=== PATIENT | female | born 2000 | race Caucasian/White ===

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

== ENCOUNTER 2019-03-30 18:14 | Outpatient (CLI) | payer SELFPAY ==
[2019-03-30 18:22] VITALS: BMI 21.7
== END 2019-03-30 18:28 | disposition home or self-care (01) ==
PROVIDERS: PCP Emergency Medicine; Visit Provider Nurse Practitioner Family
DX: Z11.1 Encounter for screening for respiratory tuberculosis (principal)
CPT/HCPCS: 86580

== ENCOUNTER → 2019-09-06 16:31 | Outpatient (CLI) | payer BC, SELFPAY ==
[2019-09-10 08:46] LABS: Neisseria gonorrhoeae, NAA Negative (Negative)
== END ==
PROVIDERS: Visit Provider Nurse Practitioner Obstetrics & Gynecology
DX: Z72.51 High risk heterosexual behavior (principal)
CPT/HCPCS: 87491; 87591

== ENCOUNTER → 2019-09-09 15:42 | Outpatient (CLI) | payer BC, SELFPAY ==
[2019-09-11 17:46] LABS: H. pylori Breath Test Negative (Negative)
== END ==
PROVIDERS: Visit Provider Nurse Practitioner Family
DX: R11.2 Nausea with vomiting, unspecified (principal)
CPT/HCPCS: 36415; 83013

== ENCOUNTER 2020-01-07 13:56 | Emergency (ER) | payer BC, SELFPAY ==
[2020-01-07 14:16] VITALS: BP 121/80; PULSE 101; RESP 19; TEMP 36.8; O2SAT 98; BMI 25.2
--- NOTE | 2020-01-07 14:16 | HMH.EDUTC ---
[facility] [place] Disposition Clinical Impression: COVID-19 Disposition: Home, Self-Care Condition on Discharge: Good Instructions: Preventing the Spread of Coronavirus Discharge Instructions Prescriptions: predniSONE [Prednisone 20mg Tab] 20 mg PO BID 5 Days #10 tab Transmission Status: Pending to [facility] Azithromycin [Z-Drew 250mg Tab] 250 mg PO DIRECTED #6 tab Transmission Status: Pending to [facility] Referrals: Lenin Mar MD [Primary Care Provider] - Time of Disposition: 14:21 Medical Decision Making - Leonardo Inquiry Pt receiving controlled substance: No Orders (Tests/Meds): ORDERS Category Date Time Status Covid-19 Nasal PCR ([facility]) Routine Lab 01/07/20 14:07 Ordered [facility] [place] HPI - General Stated complaint: retest covid Time Seen by Provider: 01/07/20 14:16 - History of Present Illness Provider Complaint: Patient diagnosed with COVID19 on 12/26. She is still having headaches, shortness of breath, diarrhea and has lost her sense of taste. She also has a history of asthma and is using her inhaler frequently. Onset (ago): day(s) (11) Location: head, chest Relieving factors: none Exacerbating factors: none Treatments prior to arrival: none - Related Data Home Medications Medication Instructions Recorded Confirmed omeprazole 20 mg tablet,delayed 20 mg PO tab 09/21/19 09/21/19 release Previous Rx's Medication Instructions Recorded albuterol sulfate 90 mcg/actuation 2 puff INHALATION Q6H #6.7 g 05/14/19 aerosol inhaler medroxyprogesterone 150 mg/mL 150 mg IM [id number] #1 ml 06/15/19 intramuscular suspension famotidine 40 mg tablet 40 mg PO DAILY #30 tab 09/08/19 nizatidine 150 mg capsule 150 mg PO QHS #30 cap 09/10/19 albuterol sulfate 2.5 mg INHALATION TID #180 ml 12/30/19 Azithromycin [Z-Drew 250mg Tab] 250 mg PO DIRECTED #6 tab 01/07/20 predniSONE [Prednisone 20mg 20 mg PO BID 5 Days #10 tab 01/07/20 Tab] Allergies Allergy/AdvReac Type Severity Reaction Status Date / Time amoxicillin [AMOXICILLIN] Allergy Mild Verified 09/21/19 14:01 penicillin G [PENICILLIN G] Allergy Mild Verified 09/21/19 14:01 EGGS Allergy Uncoded 09/21/19 14:01 [facility] History - Hepatitis A Screen Attestation statement:: This patient has been screened for Hepatitis A risk factors. I have reviewed the patient's past medical history: Yes Medical History: Reports:: Asthma Denies:: Diabetes Mellitus Type 1, Diabetes Mellitus Type 2 Other Surgeries: Yes: No Previous Surgery Amputation: No Fractures: No - Social History Smoking Status: Never smoker Tobacco Type: e-cigarettes # Packs/Day (cigarettes): 1 Alcohol Intake: never Substance Use Type: denies use Occupational Status: other Housing: house Household Members: family Family Hx:: Coronary Artery Disease, Heart Attack Comment: Maternal Grandparents-SC ROS Obtained: Yes All systems reviewed & no additional complaints - Constitutional Constitutional: Reports headache(s) - ENT Ears, Nose, Mouth, and Throat: Reports other (loss of taste) - Respiratory Respiratory: Yes dyspnea - Gastrointestinal Gastrointestingal: Reports: diarrhea Physical Exam - General General appearance: alert, in no apparent distress - Head Head exam: atraumatic, normocephalic, normal inspection - Eye Eye exam: Present: normal appearance, PERRL, EOMI - ENT ENT exam: Present: normal exam, normal oropharynx, mucous membranes moist, TM's normal bilaterally, normal external ear exam - Neck Neck exam: Present: normal inspection, full ROM, trachea midline. Absent: meningismus, lymphadenopathy - Chest Chest inspection: Present: normal inspection, symmetric chest wall rise. Absent: tenderness - Respiratory Respiratory exam: Present: normal lung sounds bilaterally. Absent: respiratory distress - Cardiovascular Cardiovascular exam: Present: regular rate, normal rhythm. Absent: JVD - Abdominal Exam Abdomi
[2020-01-07 14:22] VITALS: BP 121/80; PULSE 101; RESP 19; TEMP 36.8; O2SAT 98
== END 2020-01-07 14:24 | disposition home or self-care (01) ==
PROVIDERS: Emergency Provider Physician Assistant; PCP Emergency Medicine
DX: U07.1 COVID-19 (principal); J45.909 Unspecified asthma, uncomplicated; F17.290 Nicotine dependence, other tobacco product, uncomplicated
CPT/HCPCS: 99201; U0003

== ENCOUNTER → 2020-07-11 14:27 | Outpatient (CLI) | payer BC, SELFPAY ==
--- NOTE | 2020-07-11 14:29 | XR_ITS ---
PROCEDURE: XR CHEST 2V CLINICAL HISTORY: Dyspnea, COVID 10/20, asthma COMPARISON: CR CXR CHEST(2 VIEWS-NOT PORTABLE) from 04/26/2015 CR CXR2V XR chest 2V from 04/03/2017 FINDINGS: The cardiomediastinal silhouette and pulmonary vascularity are within normal limits. The lungs are clear without infiltrates, suspicious nodules, or pleural effusions. No acute bony abnormalities. IMPRESSION: No acute findings. Dictated by: Yefri Gonzalez MD 07/11/2020 14:43 Yefri Gonzalez MD in [place] 07/11/2020 14:43
[2020-07-11 15:28] LABS: Basophils # 0.1 K/mm3 (0-0.2); Basophils % 0.9 % (0.1-2.0); Eosinophils # 0.5 K/mm3 (0.0-0.4); Eosinophils % 5.6 % (0.1-12.0); Hematocrit 41.8 % (37.0-47.0); Hemoglobin 14.1 g/dL (12.2-16.2); Lymphocytes # 2.4 K/mm3 (0.7-4.5); Lymphocytes % 28.3 % (10-50); Mean Corpuscular HGB Conc 33.6 g/dL (31.8-35.4); Mean Corpuscular Hemoglobin 28.1 pg (27.0-31.2); Mean Corpuscular Volume 83.4 fl (81-99); Mean Platelet Volume 7.3 fl (7.4-10.4); Monocytes # 0.6 K/mm3 (0.1-1.0); Neutrophils # 4.9 K/mm3 (1.8-7.8); Neutrophils % 58.1 % (37.0-80.0); Platelet Count 337 K/mm3 (142-424); Red Blood Count 5.01 M/mm3 (4.20-5.40); Red Cell Distribution Width 12.7 % (11.5-17.5); White Blood Count 8.4 K/mm3 (4.8-10.8)
[2020-07-11 16:27] LABS: Chloride 101 mmol/L (98-107)
[2020-07-11 16:28] LABS: Potassium 4.5 mmoL/L (3.5-5.1); Sodium 137 mmol/L (136-145)
[2020-07-11 16:30] LABS: Amylase 52 U/L (30-110)
[2020-07-11 16:31] LABS: Alanine Aminotransferase 12 U/L (12-78); Albumin Level 5.1 g/dl (3.5-5.0); Alkaline Phosphatase 57 U/L (38-126); Anion Gap 16.5 mEq/L (5-15); Aspartate Amino Transferase 22 U/L (14-36); Bilirubin,Total 0.7 mg/dl (0.2-1.3); Blood Urea Nitrogen 8 mg/dl (7-17); Calcium 10.1 mg/dl (8.4-10.2); Carbon Dioxide 24 mmol/L (22.0-30.0); Estimated Glomerular Filt Rate 126 ml/min (>60); GFR (African American) 153 ML/MIN (>60); Globulin 2.5 g/dL (1.3-3.2); Glucose 92 mg/dl (74-100); HDL Cholesterol 48 mg/dl (40-60); Lipase 57 U/L (23-300); Total Protein,Serum 7.6 g/dl (6.3-8.2)
[2020-07-11 16:32] LABS: Chol/HDL Ratio 4.3 (1-3.5); Cholesterol 205 mg/dl (140-200); Triglycerides 84 mg/dl (30-150); VLDL Cholesterol 17 mg/dL (0-40)
[2020-07-11 16:42] LABS: Direct LDL Cholesterol 120.26 mg/dL (100-129)
[2020-07-11 16:50] LABS: T4 (Thyroxine) 9.6 ug/dl (5.53-11.0)
[2020-07-11 17:02] LABS: Thyroid Stimulating Hormone 0.64 uIU/mL (0.465-4.68)
[2020-07-11 17:08] LABS: HCG,Quantitative < 2 mIU/ml (0-5.42)
[2020-07-13 16:02] LABS: H. pylori Breath Test Negative (Negative)
== END ==
PROVIDERS: PCP Physician Assistant; Visit Provider Physician Assistant
DX: R06.00 Dyspnea, unspecified (principal); R10.13 Epigastric pain; B94.8 Sequelae of other specified infectious and parasitic diseases; J45.909 Unspecified asthma, uncomplicated; Z86.16 Personal history of COVID-19
CPT/HCPCS: 36415; 71046; 80053; 80061; 82150; 83013; 83690; 84436; 84443; 84702; 85025

== ENCOUNTER → 2020-07-21 09:03 | Outpatient (CLI) | payer BC, SELFPAY ==
--- NOTE | 2020-07-21 09:04 | FL_ITS ---
PROCEDURE: FL UPPER GI ESOPHAGUS W/AIR CLINICAL INDICATION: ? hiatal hernia COMPARISON: No exams were available for comparison FINDINGS: Fluoroscopy time: 1 minutes and 15 seconds The esophagus, stomach and duodenum have an unremarkable appearance. No evidence of hiatal hernia. Reflux was not demonstrated during the exam. No mass or ulcerative lesion. IMPRESSION: Unremarkable air-contrast upper GI with esophagus Dictated by: Yefri Gonzalez MD 07/21/2020 12:23 Yefri Gonzalez MD in [facility] 07/21/2020 12:23
== END ==
PROVIDERS: PCP Emergency Medicine; Visit Provider Physician Assistant
DX: K21.00 Gastro-esophageal reflux disease with esophagitis, without bleeding (principal)
CPT/HCPCS: 74221; 74246

== ENCOUNTER 2021-01-29 10:25 | Emergency (ER) | payer BC, SELFPAY ==
[2021-01-29 11:34] VITALS: BP 114/74; PULSE 91; RESP 18; TEMP 36.9; O2SAT 97; BMI 25.4
--- NOTE | 2021-01-29 11:42 | HMH.EDUTC ---
[facility] [place] Clinical Impression: Viral syndrome Disposition: Home, Self-Care Condition on Discharge: Good Instructions: DI for Viral Syndrome Additional Instructions: Drink extra fluids with and between meals. If you have difficulty drinking, try very small amounts of water or suck on ice chips. ? Avoid fruit juices, as these do not replace minerals and can actually increase diarrhea. ? Children and adults can use sports drinks to replenish electrolytes. Younger children and infants should use products formulated for children, like oral rehydration solutions. ? Eat food in small amounts and let your stomach recover. ? Get lots of rest. You may feel tired or weak. ? No greasy or fried foods for the next 24-48 hours BRAT diet Bananas Rice Apples and [place] ? Make sure to drink plenty of liquids ? Return if needed ? Straight to ER if any life threatening symptoms ? Zofran as prescribed ? Follow up with family doctor in the next 48-72 hours if no improvement or any worsening of symptoms *Monitor Temp, Over the counter Motrin or Tylenol as directed/as needed Tylenol every 4 hours and Motrin every 6 hours (as long as your family doctor has told you that you can take it) for fever or pain. and straight to ER if unable to lower temp less than 101.0 after medication given *Warm salt water gargles may help to soothe the throat *Throat Lozenges *Warm fluids like tea with honey may help to soothe the throat *Sleep elevated *Humidifier/Vaporizer Your throat swab was sent for culture. Those results are typically sent to your primary care. Be sure to follow up in 2-3 days with your family doctor/primary care physician if no improvement so they can review those result and treat if necessary. If you don?t have a primary care doctor, I recommend you get one but in the mean time, you will have to return to a walk in clinic Follow up IMMEDIATELY for new or worsening symptoms or no Noticeable improvement over the next 48-72 hours. 911 for difficulty breathing or swallowing You were tested for today for COVID19 your test result should be back in the next 24-48 hours, you may check your results on the [facility] my health portal if you have trouble logging on you may call You was given a handout with instructions for Self Quarantine and Self isolation for while you wait on test results and what to do if they are positive If you are positive the Health Dept will be contacting you also Make sure to take your Vitamins Vit. C Vit D and Zinc if you can take them Straight to ER if your abdominal pain returns Prescriptions: Dicyclomine HCl [Bentyl 10mg capsule] 10 mg PO TID PRN #15 cap PRN Reason: Cramping Transmission Status: Pending to [facility] Ondansetron [Zofran 4mg ODT] 4 mg PO TIDP PRN #9 tab PRN Reason: Nausea Transmission Status: Pending to [facility] Referrals: Lenin Mar MD [Primary Care Provider] - As needed Forms: Work/School Release Time of Disposition: 12:05 Medical Decision Making - Leonardo Inquiry Pt receiving controlled substance: No Leonardo was queried for this patient: No Vital Signs: 01/29/21 11:34 Temperature 98.5 F Temperature Source Oral Pulse Rate [Left] 91 H Respiratory Rate 18 Blood Pressure [Right Arm] 114/74 Blood Pressure Mean [Right Arm] 87 02 Sat by Pulse Oximetry 97 - Lab Data Lab results reviewed: Yes: I reviewed the patient's lab results. Orders (Tests/Meds): ORDERS Category Date Time Status Urine Culture Stat Micro 01/29/21 11:41 Ordered [facility] [place] HPI - General Stated complaint: sore throat, cough, vomiting, congestion Time Seen by Provider: 01/29/21 11:42 Mode of Arrival: Ambulatory Source of Information: Patient Limitations: No Limitations Description of Symptoms (Recalled from Triage Doc. by RN): pt c/o sore throat, n/v, lower back, abd pain, HATCH and nasal drainage. ongoing since 01/26. HEENT Symptoms (Recalled from RN notes): Yes (HATCH, nasal drainage an
[2021-01-29 12:17] LABS: UTC Strep Screen (Rapid) Negative (Negative)
[2021-01-29 12:37] VITALS: BP 114/74; PULSE 91; RESP 18; TEMP 36.9
[2021-01-29 19:13] LABS: UTC Pregnancy Test, Urine Negative (Negative)
== END 2021-01-29 12:39 | disposition home or self-care (01) ==
PROVIDERS: Emergency Provider Nurse Practitioner; PCP Emergency Medicine
DX: B34.9 Viral infection, unspecified (principal); J45.909 Unspecified asthma, uncomplicated; F17.290 Nicotine dependence, other tobacco product, uncomplicated; Z20.822 Contact with and (suspected) exposure to COVID-19
CPT/HCPCS: 81003; 81025; 87880; 99203; C9803; G0463; U0003; U0005

== ENCOUNTER → 2021-06-06 17:00 | Outpatient (CLI) | payer BC, SELFPAY | PROVIDERS: Visit Provider Nurse Practitioner Family | DX: M54.9 Dorsalgia, unspecified (principal) | CPT/HCPCS: 87086 ==

== ENCOUNTER → 2021-06-18 15:23 | Outpatient (CLI) | payer BC, SELFPAY ==
--- NOTE | 2021-06-18 15:30 | US_ITS ---
FINAL REPORT CLINICAL HISTORY: pelvic pain FINDINGS: Transvaginal sonographic images of the pelvis were obtained. The uterus measures 6.6 x 3.5 x 2.8 cm. The endometrium measures 1 mm, which is within normal limits. No uterine mass is identified. The right ovary measures 2.8 cm in length and left ovary measures 2.3 cm in length. Normal blood flow seen to the ovaries. Small follicles are present. There is no evidence of free fluid. IMPRESSION: No acute abnormality identified. Reviewed, Interpreted and Dictated by Flako Pope III, MD Transcribed by Sarah Bear Authenticated by Flako Pope III, MD on 06/18/2021 04:32:25 PM [facility]
== END ==
PROVIDERS: PCP Emergency Medicine; Visit Provider Nurse Practitioner Family
DX: R10.2 Pelvic and perineal pain (principal)
CPT/HCPCS: 76830

== ENCOUNTER → 2021-07-10 17:05 | Outpatient (CLI) | payer BC, SELFPAY ==
[2021-07-10 18:02] LABS: Urine Pregnancy, HCG Qual. Negative (Negative)
== END ==
PROVIDERS: PCP Emergency Medicine; Visit Provider Internal Medicine Gastroenterology
DX: Z01.818 Encounter for other preprocedural examination (principal); Z11.52 Encounter for screening for COVID-19
CPT/HCPCS: 81025; C9803; U0003; U0005

== ENCOUNTER → 2021-11-07 09:02 | Outpatient (CLI) | payer BC, SELFPAY ==
--- NOTE | 2021-11-07 10:01 | XR_ITS ---
FINAL REPORT TECHNIQUE: Bone densitometry calculations of the lumbar spine and left hip were obtained. CLINICAL HISTORY: [facility] USE, dep[place] shot FINDINGS: DEXA BONE DENSITY AXIAL SKELETON Using L1-4, the bone mineral density of the spine is 0.931g/cm2, corresponding to T-score of -1.1. Using the left hip, the bone mineral density of the femoral neck is 0.906 g/cm2, corresponding to a T-score of -0.3. NOTE: T-score: Standard deviation compared with peak bone mass of young adult mean. *Following the recommendations of the International Society of Bone densitometry, classification of hip BMD is based on the lower of two T-scores; total hip or femoral neck. IMPRESSION: Diminished bone mineral density of the lumbar spine consistent with osteopenia. FRAX 10 year fracture risk is needed 0.1% for a hip fracture and 1.6 % for a major osteoporotic fracture based on left hip calculations. Reviewed, Interpreted and Dictated by Garrett Huerta MD Transcribed by Sarah Bear Authenticated and [facility]
== END ==
PROVIDERS: PCP Emergency Medicine; Visit Provider Nurse Practitioner Obstetrics & Gynecology
DX: Z79.3 Long term (current) use of hormonal contraceptives (principal)
CPT/HCPCS: 77080

== ENCOUNTER 2021-12-08 08:24 | Emergency (ER) | payer BC, SELFPAY ==
[2021-12-08 08:41] VITALS: BP 139/82; PULSE 110; RESP 16; TEMP 36.8; O2SAT 97; BMI 28.3
[2021-12-08 08:44] LABS: UTC Strep Screen (Rapid) Negative (Negative)
--- NOTE | 2021-12-08 08:57 | EXP.UTC ---
Discharge Plan Disposition Patient Disposition: Home, Self-Care Condition: Good Prescriptions Prescriptions: New azithromycin [Zithromax] 250 mg tablet 250 mg PO UD DOSE PK Qty: 6 0RF Rx Instructions: Take two (2) tablets today, then one (1) tablet days #2 thru #5 [id number]-nmhjiqowi-GY [Bromfed DM] 2-30-10 mg/5 mL Syrup 5 ml PO Q6H PRN (Reason: Cough) Qty: 240 0RF No Action medroxyprogesterone 150 mg/mL suspension 150 mg IM [id number] Qty: 1 2RF albuterol sulfate [ProAir HFA] 90 mcg/actuation HFA aerosol inhaler 2 puff IH Q4-6H PRN (Reason: shortness of breath or wheezing) 90 Days Qty: 8.5 3RF Rx Instructions: administer with spacer Referrals Follow up/Referrals: Lenin Mar MD [Primary Care Provider] - See instructions Activity Restrictions/Add. Instructions Additional Instructions/Restrictions: Drink plenty of fluids. Take tylenol or ibuprofen for pain or fever. Take the medications as directed. Follow up with your regular doctor. GO TO THE ER FOR ANY WORSENING SYMPTOMS Quarantine until you know the results of your covid-19 test. Notify your school or workplace of your results and follow their instructions regarding return to work/school. Clinical Impressions Clinical Impression: Viral syndrome Instructions Patient Instructions: Strep Throat Discharge ED Provider: Ritesh Herman [facility] HPI General Stated complaint: sore throat Mode of Arrival: Ambulatory Source of Information: Patient Limitations: No Limitations Time Seen by Provider: 12/08/21 08:59 Description of Symptoms (Recalled from Triage Doc. by RN): pt comes in with c/o sore throat, congestion. symptoms began 12/05/21 . HEENT Symptoms (Recalled from RN notes): Yes Resp Symptoms (Recalled from RN notes): Yes Skin Symptoms (Recalled from RN notes): No MS Symptoms (Recalled from RN notes): No Functional Status (Recalled from RN notes): n/a History of Present Illness Provider Complaint: She states that for the past 3 days she has had cough, body aches and low grade fever. Related Data Previous Rx's Medication Instructions Recorded albuterol sulfate 90 mcg/actuation 2 puff inhalation Q4-6H PRN 10/02/21 aerosol inhaler (ProAir HFA) shortness of breath or wheezing 90 days #8.5 grams medroxyprogesterone 150 mg/mL 150 mg IM [id number] control 10/02/21 intramuscular suspension #1 mL azithromycin 250 mg tablet 250 mg PO UD DOSE PK #6 tabs 12/08/21 (Zithromax) trpcrwusfgcjbey-vwsxbzhndyjbgjz-EL 5 ml PO Q6H PRN Cough #240 mL 12/08/21 2 mg-30 mg-10 mg/5 mL oral syrup (Bromfed DM) Allergies Allergy/AdvReac Type Severity Reaction Status Date / Time amoxicillin [AMOXICILLIN] Allergy Mild Verified 12/08/21 08:43 penicillin G [PENICILLIN G] Allergy Mild Verified 12/08/21 08:43 egg Allergy Verified 12/08/21 08:43 Worker's Comp Is this a Worker's Comp case?: No PFSH PFSH Medical History Asthma Social History (Updated 11/07/21 @ 11:51 by Juanpablo Camara MD) Smoking Status: Never smoker alcohol intake: never substance use type: denies use current occupational status: other Travel in the last 8 weeks: None household members: family housing: house ROS Obtained: Yes All systems reviewed & no additional complaints except as documented Constitutional Constitutional: Reports system reviewed and no additional complaints, except as documented, Denies chills and Denies fever(s) Eyes Eyes: Denies eye discharge ENT Ears, Nose, Mouth, and Throat: Denies dysphagia, Denies sore throat and Denies throat swelling Cardiovascular Cardiovascular: Denies chest pain and Denies dyspnea Respiratory Respiratory: Denies chest congestion, Denies cough and Denies dyspnea Gastrointestinal Gastrointestingal: Denies abdominal pain, constipation, diarrhea, dysphagia, nausea or vomiting Musculoskeletal Musculoskeletal: Denies arthr
[2021-12-08 09:42] VITALS: BP 139/82; PULSE 110; RESP 16; TEMP 36.8
[2021-12-08 09:51] LABS: Adenovirus,PCR Not Detected (NotDetected); Bordetella Pertussis Not Detected (NotDetected); Chlamydophila Pneumoniae, PCR Not Detected (NotDetected); Coronavirus 19, PCR Not Detected (NotDetected); Coronavirus 229E Not Detected (NotDetected); Coronavirus NL63 Not Detected (NotDetected); Coronavirus OC43 Not Detected (NotDetected); Coronovirus HKU1,PCR Not Detected (NotDetected); Human Metapneumovirus Not Detected (NotDetected); Influenza A, PCR Not Detected (NotDetected); Influenza AH1, 2009 Not Detected (NotDetected); Influenza AH1, PCR Not Detected (NotDetected); Influenza AH3,PCR Not Detected (NotDetected); Influenza B, PCR Not Detected (NotDetected); Mycoplasma Pneumoniae, PCR Not Detected (NotDetected); Parainfluenza 1, PCR Not Detected (NotDetected); Parainfluenza 2, PCR Not Detected (NotDetected); Parainfluenza 3, PCR Not Detected (NotDetected); Parainfluenza 4, PCR Not Detected (NotDetected); Respiratory Syncytial Virus Not Detected (NotDetected); Rhinovirus/Enterovirus Not Detected (NotDetected)
== END 2021-12-08 09:45 | disposition home or self-care (01) ==
PROVIDERS: Emergency Provider Nurse Practitioner Family; PCP Emergency Medicine
DX: B34.9 Viral infection, unspecified (principal); J02.9 Acute pharyngitis, unspecified; R05.9 Cough, unspecified; R09.81 Nasal congestion; M79.10 Myalgia, unspecified site; R50.9 Fever, unspecified; Z20.822 Contact with and (suspected) exposure to COVID-19
CPT/HCPCS: 87581; 87632; 87798; 87880; 99212; C9803; G0463; U0003; U0005

== ENCOUNTER 2022-01-26 06:29 | Emergency (ER) | payer BC, SELFPAY ==
[2022-01-26 06:30] VITALS: BP 126/84; PULSE 77; RESP 16; TEMP 36.6; O2SAT 97; BMI 28.3
[2022-01-26 06:48] LABS: Microscopic, Urine URINE MICROSCOPIC (MICROSCOPIC)
[2022-01-26 06:50] LABS: Appearance,Urine SL CLOUDY (Clear); Bilirubin,Urine Negative (Negative); Blood, Urine Negative (Negative); Color,Urine YELLOW (Yellow); Glucose,Urine (UA) Negative (Negative); Ketones,Urine Negative (Negative); Leukocyte Esterase,Urine Negative (Negative); Nitrate,Urine Negative (Negative); Protein,Urine Negative (Negative); Urobilinogen,Urine 0.2 EU/dl (0.2)
[2022-01-26 06:51] LABS: Urine Pregnancy, HCG Qual. Negative (Negative)
--- NOTE | 2022-01-26 06:59 | HMH.EDNVD ---
Discharge Plan Disposition Patient Disposition: Home, Self-Care Prescriptions Prescriptions: New ondansetron HCl 4 mg Tablet 4 mg PO Q8H PRN (Reason: Nausea) Qty: 30 0RF No Action medroxyprogesterone 150 mg/mL suspension 150 mg IM [id number] Qty: 1 2RF ondansetron 4 mg tablet,disintegrating 4 mg PO Q8H PRN (Reason: nausea and vomiting) Qty: 30 0RF methylprednisolone 4 mg tablets,dose pack See Rx Instructions PO PER PKG DIR Qty: 21 0RF Rx Instructions: PO PER PKG DIR nzfsbwfkhzpgghb-bdkjqrvia-AC 2-30-10 mg/5 mL syrup 10 ml PO Q4-6H PRN (Reason: cold symptoms) Qty: 200 0RF albuterol sulfate [ProAir HFA] 90 mcg/actuation HFA aerosol inhaler 2 puff IH Q4-6H PRN (Reason: shortness of breath or wheezing) 90 Days Qty: 8.5 3RF Rx Instructions: administer with spacer Referrals Follow up/Referrals: Lenin Mar MD [Primary Care Provider] - See instructions Clinical Impressions Clinical Impression: Gastroenteritis Instructions Patient Instructions: DI for Diarrhea and Traveler's Diarrhea -- Adult, DI for Nausea -- Adult Discharge ED Provider: Lenin Mar Nausea/Vomiting/Diarrhea HPI General Chief complaint: Nausea/Vomiting/Diarrhea Stated complaint: V/D, Chills Time Seen by Provider: 01/26/22 06:59 Mode of Arrival: Ambulatory Source of Information: Patient Limitations: No Limitations Description of Symptoms (Recalled from ER Triage Doc. by RN): pt c/o n/v/d, fever, chills that started several days ago History of Present Illness HPI Narrative: fever and chills with n/v over the last few days complaint: nausea and vomiting Onset (ago): day(s) Associated Abdominal Pain: No Severity: moderate Associated symptoms: denies other symptoms Related Data Previous Rx's Medication Instructions Recorded medroxyprogesterone 150 mg/mL 150 mg IM [id number] control 10/02/21 intramuscular suspension #1 mL albuterol sulfate 90 mcg/actuation 2 puff inhalation Q4-6H PRN 12/13/21 aerosol inhaler (ProAir HFA) shortness of breath or wheezing 90 days #8.5 grams nvefeatzutulfjq-ppptoqyvqofmafc-IC 10 ml PO Q4-6H PRN cold symptoms 01/18/22 2 mg-30 mg-10 mg/5 mL oral syrup #200 mL methylprednisolone 4 mg tablets in See Rx Instructions PO PER PKG DIR 01/18/22 a dose pack #21 tabs ondansetron 4 mg disintegrating 4 mg PO Q8H PRN nausea and 01/18/22 tablet vomiting #30 tabs ondansetron HCl 4 mg tablet 4 mg PO Q8H PRN Nausea #30 tabs 01/26/22 Allergies Allergy/AdvReac Type Severity Reaction Status Date / Time amoxicillin [AMOXICILLIN] Allergy Mild Verified 01/18/22 15:39 penicillin G [PENICILLIN G] Allergy Mild Verified 01/18/22 15:39 egg Allergy Verified 01/18/22 15:39 PFSH PFSH Medical History Asthma Social History Smoking Status: Never smoker alcohol intake: never substance use type: denies use current occupational status: other Travel in the last 8 weeks: None household members: family housing: house ROS Obtained: Yes All systems reviewed & no additional complaints except as documented Physical Exam General General appearance: alert Head Head exam: normocephalic Eye Eye exam: Present PERRL and EOMI ENT ENT exam: Present mucous membranes moist Neck Neck exam: Present trachea midline Respiratory Respiratory exam: Present normal lung sounds bilaterally Cardiovascular Cardiovascular exam: Present regular rate Abdominal Exam Abdominal exam: Present soft Extremities Exam Extremities exam: Present full ROM Neurological Exam Neurological exam: Present alert, oriented X3 and CN II-XII intact Psychiatric Psychiatric exam: Present normal affect Skin Skin exam: Absent rash Medical Decision Making Medical Records Medical records reviewed: Yes I reviewed the patient's medical records. Leonardo Inquiry Pt receiving controlled substance: N
[2022-01-26 07:01] LABS: Basophils # 0.1 K/mm3 (0-0.2); Eosinophils # 0.4 K/mm3 (0.0-0.4); Eosinophils % 3.5 % (0.1-12.0); Hematocrit 47.6 % (37.0-47.0); Hemoglobin 15.6 g/dL (12.2-16.2); Lymphocytes % 20.1 % (10-50); Mean Corpuscular HGB Conc 32.7 g/dL (31.8-35.4); Mean Corpuscular Hemoglobin 27.9 pg (27.0-31.2); Mean Corpuscular Volume 85.2 fl (81-99); Mean Platelet Volume 7.6 fl (7.4-10.4); Monocytes # 0.4 K/mm3 (0.1-1.0); Monocytes % 4.3 % (1.7-9.3); Neutrophils # 7.1 K/mm3 (1.8-7.8); Neutrophils % 71.1 % (37.0-80.0); Platelet Count 437 K/mm3 (142-424); Red Blood Count 5.58 M/mm3 (4.20-5.40); White Blood Count 9.9 K/mm3 (4.8-10.8)
[2022-01-26 07:02] LABS: Coronavirus 19, PCR Not Detected (NotDetected); Influenza A, PCR Not Detected (NotDetected); Influenza B, PCR Not Detected (NotDetected)
[2022-01-26 07:11] LABS: Alanine Aminotransferase 22 U/L (12-78); Albumin Level 5.1 g/dl (3.5-5.0); Albumin/Globulin Ratio 1.6 (1.1-1.8); Alkaline Phosphatase 96 U/L (38-126); Amylase 86 U/L (30-110); Aspartate Amino Transferase 27 U/L (14-36); Bilirubin,Total 0.5 mg/dl (0.2-1.3); Blood Urea Nitrogen 11 mg/dl (7-17); Calcium 10.3 mg/dl (8.4-10.2); Carbon Dioxide 25 mmol/L (22.0-30.0); Chloride 102 mmol/L (98-107); Creatinine Clearance Estimated 157 mL/min (50-200); Estimated Glomerular Filt Rate 124 ml/min (>60); GFR (African American) 150 ML/MIN (>60); Globulin 3.2 g/dL (1.3-3.2); Glucose 120 mg/dl (74-100); Lipase 66 U/L (23-300); Sodium 141 mmol/L (136-145); Total Protein,Serum 8.3 g/dl (6.3-8.2)
[2022-01-26 07:11] LABS: Bacteria,Urine Trace /lpf
[2022-01-26 07:30] VITALS: BP 127/70; PULSE 74; RESP 16; O2SAT 100
[2022-01-26 07:58] VITALS: BP 121/74; PULSE 83; RESP 18; O2SAT 99
[2022-01-26 08:00] VITALS: BP 121/74; PULSE 69; RESP 16; TEMP 36.7; O2SAT 99
== END 2022-01-26 08:00 | disposition home or self-care (01) ==
PROVIDERS: Emergency Provider Emergency Medicine; PCP Emergency Medicine
DX: K52.9 Noninfective gastroenteritis and colitis, unspecified (principal); Z79.899 Other long term (current) drug therapy; Z88.0 Allergy status to penicillin; Z88.1 Allergy status to other antibiotic agents; J45.909 Unspecified asthma, uncomplicated
CPT/HCPCS: 80053; 81001; 81025; 82150; 83690; 85025; 96365; 96375; 99284; C9803; J2405; U0003; U0005

== ENCOUNTER 2022-01-31 09:04 | Emergency (ER) | payer BC, SELFPAY ==
[2022-01-31] VITALS (7 sets, daily range): BP systolic 101–133; BP diastolic 66–92; PULSE 60–85; RESP 16–19; TEMP 36.4–36.5; O2SAT 94–99; BMI 28.3
--- NOTE | 2022-01-31 09:04 | ECG_ITS ---
APPROVED REPORT Exam: Resting ECG HR:68 bpm ECG Measurements Heart Rate 68 AXES IA 123 P 25 QRSd 77 QRS 97 QT 349 T 37 QTc 367 Conclusion SINUS RHYTHM WITH OCCASIONAL SUPRAVENTRICULAR PREMATURE COMPLEXES BORDERLINE RIGHT AXIS DEVIATION [QRS AXIS > 90] NONSPECIFIC T-WAVE ABNORMALITY BORDERLINE ECG UNCONFIRMED REPORT Electronically signed by : Nolan Vieyra MD 01/31/2022 21:15:06
--- NOTE | 2022-01-31 09:13 | XR_ITS ---
FINAL REPORT CLINICAL HISTORY: chest pain, cough COMPARISON: June 2020 FINDINGS: The heart size is normal. The mediastinum is within normal limits. There is no acute cardiopulmonary process. There is no pleural effusion. There is no pneumothorax. The bony thorax is intact. IMPRESSION: No acute cardiopulmonary process. Reviewed, Interpreted and Dictated by Garrett Huerta MD Transcribed by Shankar Carvajal Authenticated and . [facility]
--- NOTE | 2022-01-31 09:15 | PC.NURSE ---
SANJIV DAVIS at bedside.
[2022-01-31 09:35] LABS: Microscopic, Urine URINE MICROSCOPIC (MICROSCOPIC)
[2022-01-31 09:36] LABS: Bilirubin,Urine Negative (Negative); Blood, Urine 1+ (Negative); Color,Urine YELLOW (Yellow); Glucose,Urine (UA) Negative (Negative); Ketones,Urine TRACE (Negative); Leukocyte Esterase,Urine Negative (Negative); Nitrate,Urine Negative (Negative); PH,Urine 8.5 (5.0-8.5); Protein,Urine Negative (Negative); Urobilinogen,Urine 0.2 EU/dl (0.2)
[2022-01-31 09:38] LABS: Appearance,Urine Cloudy (Clear)
[2022-01-31 09:40] LABS: Basophils # 0.1 K/mm3 (0-0.2); Basophils % 0.7 % (0.1-2.0); Chloride 103 mmol/L (98-107); Eosinophils # 0.3 K/mm3 (0.0-0.4); Eosinophils % 2.2 % (0.1-12.0); Hemoglobin 15.8 g/dL (12.2-16.2); Lymphocytes # 1.5 K/mm3 (0.7-4.5); Lymphocytes % 12.1 % (10-50); Mean Corpuscular Hemoglobin 28.3 pg (27.0-31.2); Mean Corpuscular Volume 85.6 fl (81-99); Mean Platelet Volume 8.1 fl (7.4-10.4); Monocytes # 0.4 K/mm3 (0.1-1.0); Monocytes % 3.3 % (1.7-9.3); Neutrophils # 10.2 K/mm3 (1.8-7.8); Neutrophils % 81.8 % (37.0-80.0); Platelet Count 458 K/mm3 (142-424); Red Blood Count 5.61 M/mm3 (4.20-5.40); Red Cell Distribution Width 14.2 % (11.5-17.5); White Blood Count 12.5 K/mm3 (4.8-10.8)
[2022-01-31 09:41] LABS: Potassium 3.7 mmoL/L (3.5-5.1); Sodium 140 mmol/L (136-145)
[2022-01-31 09:41] LABS: Urine Pregnancy, HCG Qual. Negative (Negative)
[2022-01-31 09:43] LABS: Alanine Aminotransferase 40 U/L (12-78); Alkaline Phosphatase 91 U/L (38-126); Anion Gap 16.7 mEq/L (5-15); Aspartate Amino Transferase 33 U/L (14-36); Bilirubin,Total 0.6 mg/dl (0.2-1.3); Blood Urea Nitrogen 8 mg/dl (7-17); Carbon Dioxide 24 mmol/L (22.0-30.0); Creatinine Clearance Estimated 157 mL/min (50-200); Estimated Glomerular Filt Rate 124 ml/min (>60); GFR (African American) 150 ML/MIN (>60); Lipase 75 U/L (23-300)
[2022-01-31 09:44] LABS: Albumin Level 5.1 g/dl (3.5-5.0); Albumin/Globulin Ratio 1.6 (1.1-1.8); Calcium 10.4 mg/dl (8.4-10.2); Globulin 3.2 g/dL (1.3-3.2); Glucose 113 mg/dl (74-100); Total Protein,Serum 8.3 g/dl (6.3-8.2)
--- NOTE | 2022-01-31 09:48 | PC.NURSE ---
SALLY @ BS for CXR
[2022-01-31 09:54] LABS: C-Reactive Protein 0.8 mg/L (0-4)
--- NOTE | 2022-01-31 10:04 | HMH.EDGENADL ---
Discharge Plan Disposition Patient Disposition: Home, Self-Care Condition: Good Prescriptions Prescriptions: New metoclopramide HCl [Reglan] 10 mg tablet 10 mg PO Q4-6H Qty: 30 0RF famotidine [Pepcid] 20 mg tablet 20 mg PO BID 14 Days Qty: 28 0RF No Action medroxyprogesterone 150 mg/mL suspension 150 mg IM [id number] Qty: 1 2RF ondansetron 4 mg tablet,disintegrating 4 mg PO Q8H PRN (Reason: nausea and vomiting) Qty: 30 0RF methylprednisolone 4 mg tablets,dose pack See Rx Instructions PO PER PKG DIR Qty: 21 0RF Rx Instructions: PO PER PKG DIR wwmlcrocniagaul-xboxtgbxz-HX 2-30-10 mg/5 mL syrup 10 ml PO Q4-6H PRN (Reason: cold symptoms) Qty: 200 0RF albuterol sulfate [ProAir HFA] 90 mcg/actuation HFA aerosol inhaler 2 puff IH Q4-6H PRN (Reason: shortness of breath or wheezing) 90 Days Qty: 8.5 3RF Rx Instructions: administer with spacer ondansetron HCl 4 mg Tablet 4 mg PO Q8H PRN (Reason: Nausea) Qty: 30 0RF Referrals Follow up/Referrals: Lenin Mar MD [Primary Care Provider] - See instructions Activity Restrictions/Add. Instructions Additional Instructions/Restrictions: I recommend you start taking Pepcid twice daily for the next 2 weeks to see if this will calm down some inflammation that could be present in your stomach and causing her symptoms. Please keep track of this helps at all. Clinical Impressions Clinical Impression: Abdominal pain Instructions Patient Instructions: DI for Abdominal Pain-Adult, DI for Nausea -- Adult Discharge ED Provider: Ahsan Higgins General Adult HPI General Chief complaint: Chest Pain Stated complaint: CP Time Seen by Provider: 01/31/22 09:10 Mode of Arrival: Ambulatory Source of Information: Patient Limitations: No Limitations Description of Symptoms (Recalled from ER Triage Doc. by RN): Pt reports chest pain that she describes as pressure that woke up her at approx 3 am this morning. Pt reports nausea and sweating. Pt reports productive cough, denies fever. Pt reports recent hx of stomach problems, pt reports frequent pain in lower abd and abd pressure. History of Present Illness HPI narrative: Patient is a 22-year-old female with a past medical history of gastroenteritis, H. pylori infection, asthma who presents with concern for chest pressure as well as epigastric pain. She says that she has an extensive history of stomach problems and frequently pain but has never received an answer for this. She has had an EGD as well as many other tests that have all come back negative. She says that she is extremely nauseous and has been sweating. She has been having a productive cough but has no fever. Pain does not radiate from her epigastrium. She feels like they are 1 pain. Denies any diarrhea. Denies any hematochezia or hematemesis. Denies any shortness of breath. Related Data Previous Rx's Medication Instructions Recorded medroxyprogesterone 150 mg/mL 150 mg IM [id number] control 10/02/21 intramuscular suspension #1 mL albuterol sulfate 90 mcg/actuation 2 puff inhalation Q4-6H PRN 12/13/21 aerosol inhaler (ProAir HFA) shortness of breath or wheezing 90 days #8.5 grams reyovvzqsxstnet-srmcrrlicevvcmt-MK 10 ml PO Q4-6H PRN cold symptoms 01/18/22 2 mg-30 mg-10 mg/5 mL oral syrup #200 mL methylprednisolone 4 mg tablets in See Rx Instructions PO PER PKG DIR 01/18/22 a dose pack #21 tabs ondansetron 4 mg disintegrating 4 mg PO Q8H PRN nausea and 01/18/22 tablet vomiting #30 tabs ondansetron HCl 4 mg tablet 4 mg PO Q8H PRN Nausea #30 tabs 01/26/22 famotidine 20 mg tablet (Pepcid) 20 mg PO BID 2 weeks #28 tabs 01/31/22 metoclopramide HCl 10 mg tablet 10 mg PO Q4-6H #30 tabs 01/31/22 (Reglan) Allergies Allergy/AdvReac Type Severity Reaction Status Date / Time amoxicillin [AMOXICILLIN] Allergy Mild Verified 01/18/22 15:39 penicillin G [PENICILLIN G] Allergy Mild Verified 01/18/22 15:39 egg A
[2022-01-31 10:06] LABS: Troponin I < 0.01 ng/ml (0.00-0.034)
[2022-01-31 10:07] LABS: Bacteria,Urine Trace /lpf
--- NOTE | 2022-01-31 10:12 | PC.NURSE ---
checked on pt at this time, pt has vomited x1, reports feeling some better but still reporting nausea. Notified ER MD
== END 2022-01-31 12:43 | disposition home or self-care (01) ==
PROVIDERS: Emergency Provider Student in an Organized Health Care Education/Training Program; PCP Emergency Medicine
DX: R10.9 Unspecified abdominal pain (principal); Z79.899 Other long term (current) drug therapy; Z88.0 Allergy status to penicillin; Z88.1 Allergy status to other antibiotic agents
CPT/HCPCS: 71045; 80053; 81001; 81025; 83690; 84484; 85025; 86140; 93005; 96365; 96375; 99284; J2405

== ENCOUNTER 2022-05-24 13:41 | Emergency (ER) | payer BC, SELFPAY ==
[2022-05-24 13:42] VITALS: BP 149/91; PULSE 101; RESP 17; TEMP 36.6; O2SAT 97; BMI 28.5
--- NOTE | 2022-05-24 13:51 | HMH.EDGENADL ---
Discharge Plan Disposition Patient Disposition: Home, Self-Care Prescriptions Prescriptions: New ondansetron 4 mg tablet,disintegrating 4 mg PO Q6H PRN (Reason: nausea and vomiting) 5 Days Qty: 20 0RF No Action montelukast [Singulair] 10 mg tablet 10 mg PO DAILY Qty: 90 3RF albuterol sulfate [Ventolin HFA] 90 mcg/actuation HFA aerosol inhaler See Rx Instructions .ROUTE .COMPLEX Qty: 9 2RF Dose Instruction: INHALE 2 PUFFS EVERY 4-6 HOURS NEEDED FOR SHORTNESS OF BREATH OR WHEEZING Rx Instructions: INHALE 2 PUFFS EVERY 4-6 HOURS NEEDED FOR SHORTNESS OF BREATH OR WHEEZING Duofilm 17 % liquid 1 applic topical HS Qty: 9.8 10RF prochlorperazine maleate [Compazine] 10 mg tablet 10 mg PO Q6H PRN (Reason: nausea and vomiting) Qty: 60 5RF pantoprazole [Protonix] 40 mg tablet,delayed release (DR/EC) 40 mg PO DAILY Qty: 90 3RF medroxyprogesterone 150 mg/mL suspension See Rx Instructions .ROUTE .COMPLEX Qty: 1 2RF Dose Instruction: INJECT 1 ML EVERY 3 MONTHS DIRECTED INTRAMUSCULAR Rx Instructions: INJECT 1 ML EVERY 3 MONTHS DIRECTED INTRAMUSCULAR Referrals Follow up/Referrals: Lenin Mar MD [Staff Physician] - See instructions Activity Restrictions/Add. Instructions Additional Instructions/Restrictions: Return with worsening abdominal pain or inability to tolerate anything by mouth. Clinical Impressions Clinical Impression: Nausea vomiting and diarrhea Instructions Patient Instructions: DI for Acute Abdominal Pain Discharge ED Provider: Khadijah Gan General Adult HPI General Chief complaint: Abdominal Pain Stated complaint: Vomiting, dizzy, chills, upper abd pain Time Seen by Provider: 05/24/22 13:52 History of Present Illness HPI narrative: Patient is a 22-year-old female presenting with nausea vomiting diarrhea. States that she has had intermittent abdominal pain over the last year has been to the emergency department numerous times for similar complaints without any significant diagnosis. However states that she is intermittently normal without symptoms. Today she is been having nausea vomiting diarrhea since 7 AM this morning now she is only throwing up bile . She states that she has diffuse abdominal cramping without any focal abdominal discomfort. She called her doctor who told her she may need to get her gallbladder out and came to the emergency department today. She denies any blood in her vomit or her stool. She denies any urinary symptoms she has not had a period in 5 years and is on Depo-Provera shot. Denies any fevers respiratory symptoms or other infectious symptoms. Denies any sick contacts. Related Data Previous Rx's Medication Instructions Recorded medroxyprogesterone 150 mg/mL See Rx Instructions .Route 03/14/22 intramuscular suspension .COMPLEX #1 mL albuterol sulfate 90 mcg/actuation See Rx Instructions .Route 03/26/22 aerosol inhaler (Ventolin HFA) .COMPLEX #9 grams montelukast 10 mg tablet 10 mg PO DAILY #90 tabs 03/26/22 (Singulair) salicylic acid 17 % topical liquid 1 applic topical HS #9.8 mL 03/26/22 (Duofilm) ondansetron 4 mg disintegrating 4 mg PO Q6H PRN nausea and 05/24/22 tablet vomiting 5 days #20 tabs pantoprazole 40 mg tablet,delayed 40 mg PO DAILY #90 tabs 05/24/22 release (Protonix) prochlorperazine maleate 10 mg 10 mg PO Q6H PRN nausea and 05/24/22 tablet (Compazine) vomiting #60 tabs Allergies Allergy/AdvReac Type Severity Reaction Status Date / Time amoxicillin [AMOXICILLIN] Allergy Mild Verified 05/24/22 10:03 penicillin G [PENICILLIN G] Allergy Mild Verified 05/24/22 10:03 egg Allergy Verified 05/24/22 10:03 [facility] Disclaimer: The information contained in this section may have been updated after the patient was seen, as this information can be updated by other users. Medical History Asthma Social History (Revie
[2022-05-24 14:15] LABS: Basophils % 0.4 % (0.1-2.0); Eosinophils # 0.1 K/mm3 (0.0-0.4); Eosinophils % 0.9 % (0.1-12.0); Hematocrit 46.9 % (37.0-47.0); Hemoglobin 15.6 g/dL (12.2-16.2); Lymphocytes # 0.9 K/mm3 (0.7-4.5); Lymphocytes % 8.4 % (10-50); Mean Corpuscular HGB Conc 33.4 g/dL (31.8-35.4); Mean Corpuscular Hemoglobin 28.4 pg (27.0-31.2); Mean Corpuscular Volume 85.1 fl (81-99); Mean Platelet Volume 7.9 fl (7.4-10.4); Monocytes # 0.3 K/mm3 (0.1-1.0); Monocytes % 2.9 % (1.7-9.3); Neutrophils # 9.3 K/mm3 (1.8-7.8); Neutrophils % 87.3 % (37.0-80.0); Platelet Count 440 K/mm3 (142-424); Red Blood Count 5.51 M/mm3 (4.20-5.40); Red Cell Distribution Width 12.8 % (11.5-17.5); White Blood Count 10.7 K/mm3 (4.8-10.8)
[2022-05-24 14:16] LABS: Urine Pregnancy, HCG Qual. Negative (Negative)
[2022-05-24 14:18] LABS: MANUAL DIFFERENTIAL MANUAL DIFFERENTIAL (MANUAL DIFF)
[2022-05-24 14:22] LABS: Chloride 104 mmol/L (98-107); Potassium 3.8 mmoL/L (3.5-5.1); Sodium 142 mmol/L (136-145)
[2022-05-24 14:24] LABS: Alanine Aminotransferase 32 U/L (12-78); Alkaline Phosphatase 82 U/L (38-126); Aspartate Amino Transferase 36 U/L (14-36); Blood Urea Nitrogen 9 mg/dl (7-17); Creatinine Clearance Estimated 152 mL/min (50-200); Estimated Glomerular Filt Rate 124 ml/min (>60); GFR (African American) 150 ML/MIN (>60)
[2022-05-24 14:25] LABS: Albumin Level 5.8 g/dl (3.5-5.0); Albumin/Globulin Ratio 1.6 (1.1-1.8); Anion Gap 22.8 mEq/L (5-15); Calcium 10.2 mg/dl (8.4-10.2); Carbon Dioxide 19 mmol/L (22.0-30.0); Globulin 3.7 g/dL (1.3-3.2); Glucose 102 mg/dl (74-100); Lipase 122 U/L (23-300); Total Protein,Serum 9.5 g/dl (6.3-8.2)
[2022-05-24 14:31] VITALS: BP 123/74; PULSE 80; O2SAT 100
[2022-05-24 15:04] LABS: Lymphocytes % 13 % (10-50); Monocytes % 2 % (2-9); Neutrophils % 85 % (42-76); Platelet Estimate Slight Increase; Total Cells Counted 100
[2022-05-24 15:05] LABS: RBC Morphology Normal
[2022-05-24 15:26] VITALS: BP 119/58; PULSE 62; RESP 18; TEMP 36.6; O2SAT 99
== END 2022-05-24 15:27 | disposition home or self-care (01) ==
PROVIDERS: Emergency Provider Student in an Organized Health Care Education/Training Program; PCP Family Medicine
DX: R11.2 Nausea with vomiting, unspecified (principal); R19.7 Diarrhea, unspecified; R10.9 Unspecified abdominal pain; J45.909 Unspecified asthma, uncomplicated
CPT/HCPCS: 80053; 81025; 83690; 85007; 85025; 96361; 96374; 99284; 99285; J2405

== ENCOUNTER → 2022-06-06 09:48 | Outpatient (CLI) | payer BC, SELFPAY ==
--- NOTE | 2022-06-06 09:50 | US_ITS ---
FINAL REPORT CLINICAL HISTORY: + Ravi Sign FINDINGS: ULTRASOUND RIGHT UPPER QUADRANT Sonographic imaging of the right upper quadrant was obtained. The pancreas is partially obscured. The liver is unremarkable. There are small echogenic nonshadowing foci in the wall of the gallbladder which is probably due to small polyps. There is a minimal amount of sludge. There is no biliary ductal dilatation. The common duct is normal at 2 mm. Limited images of the right kidney are unremarkable. IMPRESSION: Small echogenic nonshadowing foci in the wall of the gallbladder, probably due to small polyps. Reviewed, Interpreted and Dictated by Garrett Huerta MD Transcribed by Sarah Bear Authenticated and [facility]
== END ==
PROVIDERS: PCP Family Medicine; Visit Provider Family Medicine
DX: R10.11 Right upper quadrant pain (principal); R19.8 Other specified symptoms and signs involving the digestive system and abdomen
CPT/HCPCS: 76705

== ENCOUNTER 2022-06-07 17:01 | Outpatient (REF) | payer SELFPAY ==
[2022-06-07 17:11] VITALS: BMI 26.6
== END 2022-06-07 17:18 | disposition home or self-care (01) ==
LOC: UTC.OUT 17:01
PROVIDERS: Visit Provider Nurse Practitioner Family
DX: Z11.1 Encounter for screening for respiratory tuberculosis (principal)
CPT/HCPCS: 86580

== ENCOUNTER 2022-08-13 12:39 | Day surgery (SDC) | payer BC, SELFPAY ==
[2022-08-08 11:17] VITALS: BMI 26.4
[2022-08-13 12:55] VITALS: BP 118/80; PULSE 117; RESP 16; TEMP 37.1; O2SAT 96
--- NOTE | 2022-08-13 12:56 | HMH.SCOPE ---
Procedure: Date: 08/13/22 Patient Date of :: 2000 Procedure Performed:: Esophagogastroduodenoscopy with biopsy Indications:: Reflux Nausea and vomiting Epigastric pain Performing Provider:: Markie Zendejas MD Referring Provider:: . Sedation:: Monitored anesthesia care Procedure:: After informed consent was obtained the patient was taken to the endoscopy suite. Sedation ensued after the patient was transferred to the left lateral decubitus position. Pulse, blood pressure, and oxygen saturation were monitored throughout the procedure. The endoscope was advanced beyond the duodenal bulb. Retroflexion within the gastric lumen was accomplished. The gastroscope was carefully removed and the patient was transferred to recovery in stable condition. Please see findings and specimens below for detail. Findings:: Fairly small hiatal hernia Hi-arcing cardia Gastroesophageal junction at 36 cm Specimens:: Antral biopsy Recommendations:: Follow-up pathology Continue proton pump inhibition Further discussion with regard to possible small polyps and minimal sludge noted on recent gallbladder ultrasound will be ongoing Complications:: No immediate Estimated blood obtained (mL): 1
--- NOTE | 2022-08-13 13:01 | EXP.ANES.CKL ---
[facility] Disclaimer: The information contained in this section may have been updated after the patient was seen, as this information can be updated by other users. Medical History Asthma GERD (gastroesophageal reflux disease) Surgical History [place] teeth extracted Family History Other Family history of cancer Social History Smoking Status: Current every day smoker tobacco type: e-cigarettes alcohol intake: never substance use type: denies use current occupational status: employed and other Travel in the last 8 weeks: Inside the [place] household members: family housing: house [facility] Anesthesia Checklist Patient Identification Patient Identification: Arm Band and Verbal (Name & ) Structural Data Admitted From: Home Planned Operative Procedure/s: EGD Consent for Planned Operative Procedure(s) Verified: Yes NPO Status Verified Time NPO: 00:00 Chart Verification Results Verified: HCG Airway Assessment C-Spine Mobility Assessed: Yes TMJ Mobility Assessed: Yes Dentition: Good Dentition Neurological Assessment Level of Consciousness: Awake Hx Seizures: No Numbness or tingling in extremities: No Anesthesia Plan Anesthesia Risk discussed: Yes Anesthesia Plan: Verified ASA Class: II Anesthesia Type: MAC
[2022-08-13 13:08] LABS: Urine Pregnancy, HCG Qual. Negative (Negative)
[2022-08-13 14:00] VITALS: BP 96/55; PULSE 91; RESP 18; TEMP 36.2; O2SAT 95
[2022-08-13 14:10] VITALS: BP 94/51; PULSE 88; RESP 18; O2SAT 96
[2022-08-13 14:20] VITALS: BP 92/55; PULSE 88; RESP 18; O2SAT 95
[2022-08-13 14:45] VITALS: BP 99/47; PULSE 89; RESP 18; O2SAT 99
== END 2022-08-13 15:00 | disposition home or self-care (01) ==
PROVIDERS: PCP Emergency Medicine; Visit Provider Surgery
PROC: 0DJ08ZZ Inspection of Upper Intestinal Tract, Via Natural or Artificial Opening Endoscopic (ICD-10-PCS; CPT 43235; principal; 2022-08-13 13:30)
DX: R10.13 Epigastric pain (principal); K21.9 Gastro-esophageal reflux disease without esophagitis; R11.2 Nausea with vomiting, unspecified; K31.9 Disease of stomach and duodenum, unspecified; K44.9 Diaphragmatic hernia without obstruction or gangrene; F17.290 Nicotine dependence, other tobacco product, uncomplicated; Z79.899 Other long term (current) drug therapy
CPT/HCPCS: 43239; 81025

== ENCOUNTER → 2022-09-11 16:46 | Outpatient (CLI) | payer BC, SELFPAY ==
[2022-09-11 17:06] LABS: Basophils # 0.1 K/mm3 (0-0.2); Basophils % 0.8 % (0.1-2.0); Eosinophils # 0.4 K/mm3 (0.0-0.4); Eosinophils % 5.1 % (0.1-12.0); Hematocrit 40.8 % (37.0-47.0); Lymphocytes # 3.2 K/mm3 (0.7-4.5); Lymphocytes % 37.9 % (10-50); Mean Corpuscular HGB Conc 31.8 g/dL (31.8-35.4); Mean Corpuscular Hemoglobin 27.4 pg (27.0-31.2); Mean Corpuscular Volume 86.3 fl (81-99); Mean Platelet Volume 7.8 fl (7.4-10.4); Monocytes # 0.5 K/mm3 (0.1-1.0); Monocytes % 6.4 % (1.7-9.3); Neutrophils # 4.2 K/mm3 (1.8-7.8); Neutrophils % 49.6 % (37.0-80.0); Platelet Count 326 K/mm3 (142-424); Red Blood Count 4.73 M/mm3 (4.20-5.40); Red Cell Distribution Width 12.9 % (11.5-17.5); White Blood Count 8.4 K/mm3 (4.8-10.8)
[2022-09-11 17:09] LABS: Urine Pregnancy, HCG Qual. Negative (Negative)
[2022-09-11 17:26] LABS: Chloride 100 mmol/L (98-107); Sodium 138 mmol/L (136-145)
[2022-09-11 17:27] LABS: Potassium 4.3 mmoL/L (3.5-5.1)
[2022-09-11 17:29] LABS: Alanine Aminotransferase 20 U/L (12-78); Albumin Level 4.7 g/dl (3.5-5.0); Alkaline Phosphatase 54 U/L (38-126); Anion Gap 15.3 mEq/L (5-15); Aspartate Amino Transferase 32 U/L (14-36); Bilirubin,Total 0.2 mg/dl (0.2-1.3); Blood Urea Nitrogen 15 mg/dl (7-17); Carbon Dioxide 27 mmol/L (22.0-30.0); Estimated Glomerular Filt Rate 104 ml/min (>60); GFR (African American) 125 ML/MIN (>60); Globulin 2.4 g/dL (1.3-3.2); Total Protein,Serum 7.1 g/dl (6.3-8.2)
[2022-09-11 17:30] LABS: Calcium 9.4 mg/dl (8.4-10.2); Glucose 90 mg/dl (74-100)
== END ==
PROVIDERS: PCP Emergency Medicine; Visit Provider Surgery
DX: Z01.812 Encounter for preprocedural laboratory examination (principal); K82.4 Cholesterolosis of gallbladder
CPT/HCPCS: 36415; 80053; 81025; 85025

== ENCOUNTER 2023-08-08 14:12 | Emergency (ER) | payer OTHER, SELFPAY ==
[2023-08-08 14:13] VITALS: BP 116/75; PULSE 88; RESP 13; TEMP 36.9; O2SAT 97; BMI 23.6
[2023-08-08 14:43] LABS: Basophils % 0.4 % (0.1-2.0); Eosinophils % 0.3 % (0.1-12.0); Hematocrit 47.7 % (37.0-47.0); Hemoglobin 15.6 g/dL (12.2-16.2); Lymphocytes # 0.7 K/mm3 (0.7-4.5); Lymphocytes % 5.8 % (10-50); Mean Corpuscular HGB Conc 32.8 g/dL (31.8-35.4); Mean Corpuscular Hemoglobin 29.3 pg (27.0-31.2); Mean Corpuscular Volume 89.4 fl (81-99); Mean Platelet Volume 7.5 fl (7.4-10.4); Monocytes # 0.3 K/mm3 (0.1-1.0); Monocytes % 2.4 % (1.7-9.3); Neutrophils # 11.4 K/mm3 (1.8-7.8); Neutrophils % 91.1 % (37.0-80.0); Platelet Count 320 K/mm3 (142-424); Red Blood Count 5.34 M/mm3 (4.20-5.40); Red Cell Distribution Width 13.5 % (11.5-17.5); White Blood Count 12.5 K/mm3 (4.8-10.8)
[2023-08-08 14:46] LABS: HCG Qualitative, Serum Negative (Negative)
[2023-08-08 14:47] LABS: Alanine Aminotransferase 51 U/L (12-78); Albumin Level 5.3 g/dl (3.5-5.0); Albumin/Globulin Ratio 1.6 (1.1-1.8); Alkaline Phosphatase 74 U/L (38-126); Anion Gap 21.9 mEq/L (5-15); Aspartate Amino Transferase 42 U/L (14-36); Bilirubin,Total 1.5 mg/dl (0.2-1.3); Blood Urea Nitrogen 20 mg/dl (7-17); Calcium 10.3 mg/dl (8.4-10.2); Carbon Dioxide 20 mmol/L (22.0-30.0); Chloride 101 mmol/L (98-107); Creatinine Clearance Estimated 111 mL/min (50-200); Estimated Glomerular Filt Rate 103 ml/min (>60); GFR (African American) 124 ML/MIN (>60); Globulin 3.4 g/dL (1.3-3.2); Glucose 113 mg/dl (74-100); Lipase 61 U/L (23-300); Potassium 3.9 mmoL/L (3.5-5.1); Sodium 139 mmol/L (136-145); Total Protein,Serum 8.7 g/dl (6.3-8.2)
[2023-08-08 14:52] LABS: Microscopic, Urine URINE MICROSCOPIC (MICROSCOPIC)
[2023-08-08 14:53] LABS: Appearance,Urine CLEAR (Clear); Blood, Urine Negative (Negative); Color,Urine YELLOW (Yellow); Glucose,Urine (UA) Negative (Negative); Ketones,Urine 3+ (Negative); Leukocyte Esterase,Urine Negative (Negative); Nitrate,Urine Negative (Negative); Protein,Urine Negative (Negative); Specific Gravity, Urine 1.025 (1.005-1.030); Urobilinogen,Urine 0.2 EU/dl (0.2)
[2023-08-08 14:54] LABS: Adenovirus F 40/41, stool Not Detected (NotDetected); Astrovirus Not Detected (NotDetected); Campylobacter Not Detected (NotDetected); Clostridium Difficile A/B, PCR Not Detected (NotDetected); Cryptosporidium Not Detected (NotDetected); Cyclospora Cayetanesis Not Detected (NotDetected); Entamoeba histolytica Not Detected (NotDetected); Enteroaggregative E coli Not Detected (NotDetected); Enteropathogenic E coli Not Detected (NotDetected); Enterotoxigenic E coli Not Detected (NotDetected); Giardia lamblia Not Detected (NotDetected); Norovirus Not Detected (NotDetected); Plesimonas Shigalloides, PCR Not Detected (NotDetected); Rotavirus A Not Detected (NotDetected); Salmonella, PCR Not Detected (NotDetected); Sapovirus Not Detected (NotDetected); Shiga-like toxin E coli Not Detected (NotDetected); Shigella Enterovasive E coli Not Detected (NotDetected); Vibrio Cholerae Not Detected (NotDetected); Vibrio, PCR Not Detected (NotDetected); Yersinia Entercolitica, PCR Not Detected (NotDetected)
[2023-08-08 14:56] LABS: Bilirubin,Urine 1+ (Negative)
[2023-08-08 14:58] LABS: MANUAL DIFFERENTIAL MANUAL DIFFERENTIAL (MANUAL DIFF)
[2023-08-08 15:05] LABS: Bacteria,Urine Trace /lpf; WBC,Urine Occasional #/hpf (0-3)
[2023-08-08] MEDS: LACTATED RINGERS 1000ML 1,000 ML 999 ML IV ×2 (15:10→16:11)
[2023-08-08] MEDS: ONDANSETRON 4MG/2ML VIAL 4 MG IV (15:10)
[2023-08-08] MEDS: BELLADONNA ALKALOIDS 60 ML ML PO (15:10)
[2023-08-08 15:12] VITALS: BP 108/68; PULSE 96; O2SAT 97
[2023-08-08 15:17] LABS: Lymphocytes % 7 % (10-50); Neutrophils % 93 % (42-76); Platelet Estimate Normal; RBC Morphology Normal; Total Cells Counted 100
--- NOTE | 2023-08-08 15:18 | ED_ITS ---
Discharge Plan Disposition Chief Complaint: Nausea/Vomiting/Diarrhea Prescriptions Prescriptions: No Action pantoprazole [Protonix] 40 mg tablet,delayed release (DR/EC) 40 mg PO DAILY Qty: 90 3RF methylprednisolone [Medrol (Drew)] 4 mg tablets,dose pack 4 mg PO DAILY Qty: 21 0RF fluticasone propionate [Flonase Allergy Relief] 50 mcg/actuation spray,suspension 1 spray intranasal DAILY Qty: 16 2RF Rx Instructions: administer into each nostril azithromycin 250 mg tablet See Rx Instructions PO .COMPLEX Qty: 6 0RF Rx Instructions: take 500 mg today (day 1), then 250 mg for 4 days (days 2-5) fluticasone propionate 50 mcg/actuation blister with device 1 inh inhalation BID Qty: 60 2RF albuterol sulfate 2.5 mg /3 mL (0.083 %) solution for nebulization 2.5 mg inhalation Q4-6H PRN (Reason: shortness of breath or wheezing) Qty: 180 1RF albuterol sulfate 90 mcg/actuation HFA aerosol inhaler See Rx Instructions .ROUTE .COMPLEX Qty: 9 2RF Dose Instruction: SHAKE WELL AND INHALE 2 PUFFS EVERY 4-6 HOURS NEEDED FOR SHORTNESS OF BREATH OR WHEEZING Rx Instructions: SHAKE WELL AND INHALE 2 PUFFS EVERY 4-6 HOURS NEEDED FOR SHORTNESS OF BREATH OR WHEEZING Referrals Follow up/Referrals: Erika Ordaz PA [Primary Care Provider] - See instructions Instructions Patient Instructions: DI for Diarrhea and Traveler's Diarrhea -- Adult, DI for Diarrhea and Traveler's Diarrhea -- Child, DI for Nausea -- Adult, DI for Nausea -- Child Discharge ED Provider: Anand Pritchard General Adult HPI General Chief complaint: Nausea/Vomiting/Diarrhea Stated complaint: dizzy, vomitting, diarrhea Time Seen by Provider: 08/08/23 14:34 Mode of Arrival: Wheelchair Source of Information: Patient Limitations: No Limitations Description of Symptoms (Recalled from ER Triage Doc. by RN): pt presents to ED with c/o nausea, vomitting, diarrhea. pt reports symptoms began this am when she woke up. pt reports she has been to ED for similar symptoms and was told that she had acid reflux, pt reports she does take a daily protonix. History of Present Illness HPI narrative: Please note that above description of symptoms, in this electronic medical record under categorization of recalled from ER triage doctor by RN are reflective of an initial nursing assessment, however, is not reflective of my full history and physical exam that was personally taken and clarified. Consequentially, this preceding description of symptoms, which may include the patient's categorized chief complaint in the EMR, do not reflect my personal clinical impression, and the ultimate description of history of present illness and patient stated complaints should be deferred to this section of the note. Unless stated otherwise or congruent with this section of the note, additional signs, symptoms, or incongruence should be interpreted as inaccurate with my clinical impression. Related Data Previous Rx's Medication Instructions Recorded pantoprazole 40 mg tablet,delayed 40 mg PO DAILY Acid reflux #90 tabs 12/17/22 release (Protonix) albuterol sulfate 2.5 mg/3 mL 2.5 mg (3 mL) inhalation Q4-6H PRN 04/01/23 (0.083 %) solution for nebulization shortness of breath or wheezing #180 mL albuterol sulfate 90 mcg/actuation See Rx Instructions .Route 07/10/23 aerosol inhaler .COMPLEX #9 grams azithromycin 250 mg tablet See Rx Instructions PO .COMPLEX #6 07/15/23 tabs fluticasone propionate 50 1 spray intranasal DAILY #16 grams 07/15/23 mcg/actuation nasal spray,suspension (Flonase Allergy Relief) methylprednisolone 4 mg tablets in 4 mg PO DAILY #21 tabs 07/15/23 a dose pack (Medrol (Drew)) fluticasone propionate 50 1 inh inhalation BID #60 ea 07/16/23 mcg/actuation blister powder for inhalation Allergies Allergy/AdvReac Type Severity Reaction Status Date / Time amoxicillin [AMOXICILLIN] Allergy Mild Verified 07/15/23 15:38 penicillin G [PENICILLIN G] Allergy Mild Verified 07/15/23 15:38 egg Allergy Verified 07/15/23 15:38 [facility] Disclaimer: The information contained in this section may have been updated after the patient was seen, as this information can be updated by other users. Medical History Asthma GERD (gastroesophageal reflux disease) Surgical History History of esophagogastroduodenoscopy (EGD) [place] teeth extracted Family History Other Family history of cancer Social History Smoking Status: Never smoker alcohol intake: never substance use type: denies use current occupational status: employed and other Travel in the last 8 weeks: Inside the [place] household members: family housing: house ROS Obtained: Yes All systems reviewed & no additional complaints except as documented Physical Exam General General appearance: alert and in no apparent distress Head Head exam: atraumatic and normocephalic Eye Eye exam: Present normal appearance, PERRL and EOMI ENT ENT exam: Present mucous membranes moist Neck Neck exam: Present normal inspection, full ROM and trachea midline Respiratory Respiratory exam: Absent respiratory distress, wheezes, stridor, accessory muscle use or prolonged expiratory phase Cardiovascular Cardiovascular exam: Present normal rhythm Abdominal Exam Abdominal exam: Present soft; Absent distention, tenderness, guarding, rebound or rigidity Extremities Exam Extremities exam: Absent edema Neurological Exam Neurological exam: Present alert, oriented X3, CN II-XII intact and normal gait; Absent motor sensory deficit Skin Skin exam: Present warm and dry; Absent diaphoresis or erythema Medical Decision Making Medical Records Medical records reviewed: Yes I reviewed the patient's medical records. Leonardo Inquiry Pt receiving controlled substance: No Leonardo was queried for this patient: No Vital Signs: 08/08/23 14:13 08/08/23 15:12 08/08/23 15:30 Temperature 98.4 F Temperature Source Oral Pulse Rate 96 H 86 Pulse Rate [Left Radial] 88 Respiratory Rate 13 Blood Pressure 108/68 L 107/70 L Blood Pressure [Right Arm] 116/75 Blood Pressure Mean [Right Arm] 88 02 Sat by Pulse Oximetry 97 97 99 Oxygen Delivery Method Room Air Lab Data Lab Results 08/08/23 14:20: WBC 12.5 H, RBC 5.34, Hgb 15.6, Hct 47.7 H, MCV 89.4, MCH 29.3, MCHC 32.8, RDW 13.5, Plt Count 320, MPV 7.5, Neut % (Auto) 91.1 H, Lymph % (Auto) 5.8 L, Lane % (Auto) 2.4, Eos % (Auto) 0.3, Baso % (Auto) 0.4, Neut # (Auto) 11.4 H, Lymph # (Auto) 0.7, Lane # (Auto) 0.3, Eos # (Auto) 0.0, Baso # (Auto) 0.0, Total Counted 100, Neutrophils % (Manual) 93 H, Lymphocytes % (Manual) 7 L, Platelet Estimate Normal, RBC Morphology Normal, Sodium 139, Potassium 3.9, Chloride 101, Carbon Dioxide 20 L, Anion Gap 21.9 H, BUN 20 H, Creatinine 0.70, Estimated Creat Clear 111, Estimated GFR 103, Est GFR ( Amer) 124, Glucose 113 H, Calcium 10.3 H, Total Bilirubin 1.5 H, AST 42 H, ALT 51, Alkaline Phosphatase 74, Total Protein 8.7 H, Albumin 5.3 H, Globulin 3.4 H, Albumin/Globulin Ratio 1.6, Lipase 61, Serum HCG, Qual Negative, HCG, Quant < 2 08/08/23 14:48: Urine Color Yellow, Urine Appearance Clear, Urine pH 6.0, Ur Specific [place] 1.025, Urine Protein Negative, Urine Glucose (UA) Negative, Urine Ketones 3+, Urine Blood Negative, Urine Nitrate Negative, Urine Bilirubin 1+ A, Urine Urobilinogen 0.2, Ur Leukocyte Esterase Negative, Urine RBC None, Urine WBC Occasional, Ur Squamous Epith Cells 5-10, Urine Bacteria Trace 08/08/23 14:20 08/08/23 14:20 Orders (Tests/Meds): ED MEDICATIONS Generic Name Dose Route Start Last Admin Trade Name Freq PRN Reason Stop Dose Admin Lactated Ringer's 1,000 mls @ 999 mls/hr 08/08/23 15:02 08/08/23 15:10 Lactated Ringer's 1000 Ml Bag IV 08/08/23 16:02 999 mls/hr .Q1H1M ONE Administration Discontinued Medications Generic Name Dose Route Start Last Admin Trade Name Freq PRN Reason Stop Dose Admin Belladonna Alkaloids 60 ml 08/08/23 15:02 08/08/23 15:10 Belladonna Alkaloids 60 Ml Ml PO 08/08/23 15:03 60 ml ONCE ONE Administration Ondansetron HCl 4 mg 08/08/23 15:02 08/08/23 15:10 Ondansetron 4mg/2ml Vial IV 08/08/23 15:03 4 mg ONCE ONE Administration ORDERS Category Date Time Status Complete Blood Count Auto Diff Stat Lab 08/08/23 14:20 Completed Comprehensive Metabolic Panel Stat Lab 08/08/23 14:20 Completed Diarrhea 23 Panel, PCR Stat Lab 08/08/23 14:48 Received HCG Qualitative, Serum Stat Lab 08/08/23 14:20 Completed HCG,Quantitative Stat Lab 08/08/23 14:20 Completed Lipase Stat Lab 08/08/23 14:20 Completed UA [Urinalysis and Microscopic] Stat Lab 08/08/23 14:48 Completed Medical Decision Narrative: 23-year-old female no medical history presenting with abdominal pain and vomiting. Patient states that she started having abdominal pain and vomiting as well as diarrhea, both nonbloody this morning, 08/07 around 3 AM. Woke her up from sleep. Patient states that she recently got back from the [facility]. Prior to going to the [facility], had sinus infection was on antibiotics for this. No sick contacts he knows of, or C. difficile contacts or history. No fevers or chills, dysuria hematuria, chance of . She does state that she had issue with her gallbladder in the past, unsure if this is related. Independent rotation of workup with negative hCG. Patient does have leukocytosis 12.5 neutrophilia. Anion gap 21.9, BUN 20, creatinine 1.7 and normal. LFTs nonactionable. Urinalysis without concern for UTI, patient does have concern for dehydration with bilirubin and ketones. Prior to meds and reevaluation, care not to oncoming physician. Sand Cutter Operator disclaimer Much of this encounter note is an electronic sales force administrator spoken language to printed text. Electronic sales force administrator of the spoken language may permit errors. Although I have reviewed the note, some errors may still exist. Procedures Limited Ultrasound Indication:: Limited RUQ ultrasound Indication: Abdominal pain and vomiting Identified structures: -Gallbladder -Gallbladder wall -Common bile duct -Liver Findings: Sonographic Ravi sign: Absent Gallstones: Absent Sludge: Absent Pericholecystic fluid: Absent Maximal GB wall thickness (mm) (normal is </= 3mm): Normal Common bile duct width (mm) (normal is </= 6mm): Normal Gallbladder width (cm) (normal is < 4cm): Normal Gallbladder length (cm) (normal is < 10cm): Normal Impression: Normal gallbladder Images were saved to permanent archive The study was technically adequate CPT 66614-87 This study was performed by me, and I personally interpreted all images/videos. Based on my clinical judgement, these images were adequate and did not necessitate further imaging. Critical Care Critical Care Time Critical Care Time: No
[2023-08-08 15:30] VITALS: BP 107/70; PULSE 86; O2SAT 99
[2023-08-08 15:36] LABS: HCG,Quantitative < 2 mIU/ml (0-5.42)
--- NOTE | 2023-08-08 15:50 | CT_ITS ---
PROCEDURE INFORMATION: Exam: CT Abdomen And Pelvis With Contrast Exam date and time: 08/08/2023 4:29 PM Age: 23 years old Clinical indication: Abdominal pain; Additional info: Abd pain/vomiting TECHNIQUE: Imaging protocol: Computed tomography of the abdomen and pelvis with contrast. Radiation optimization: All CT scans at this facility use at least one of these dose optimization techniques: automated exposure control; mA and/or kV adjustment per patient size (includes targeted exams where dose is matched to clinical indication); or iterative reconstruction. Contrast material: ISOVUE; Contrast volume: 75 ml; Contrast route: IV; COMPARISON: CT ABDOMEN PELVIS WO CON 05/14/2019 4:07 PM FINDINGS: Lungs: Lung bases are clear. Liver: Subcentimeter low-density lesion left lobe of the liver on image 31 of series 3 too small to characterize but likely a cyst. Liver otherwise unremarkable. Gallbladder and bile ducts: Normal. No calcified stones. No ductal dilation. Pancreas: Normal. No ductal dilation. Spleen: Normal. No splenomegaly. Adrenal glands: Normal. No mass. Kidneys and ureters: Normal. No hydronephrosis. Stomach and bowel: Multiple fluid distended small bowel loops noted in the abdomen and pelvis. GI tract structures otherwise unremarkable with no evident wall thickening allowing for incomplete distention. Appendix: Appendix is normal. No evidence of appendicitis. Appendix is visible posterior to the cecum centered on axial images 58 through 70 and centered on coronal images 25 and 26. No secondary signs of appendicitis. Intraperitoneal space: Unremarkable. No free air. No significant fluid collection. Vasculature: Unremarkable. No abdominal aortic aneurysm. Lymph nodes: Unremarkable. No enlarged lymph nodes. Urinary bladder: Unremarkable as visualized. Reproductive: Unremarkable as visualized. Bones/joints: Unremarkable. No acute fracture. Soft tissues: Unremarkable. IMPRESSION: 1. Fluid distended small bowel loops which is nonspecific but can be associated with gastroenteritis in the proper clinical setting. 2. Additional nonemergent findings as above.
[2023-08-08 16:01] VITALS: BP 110/58; PULSE 94; O2SAT 99
[2023-08-08] MEDS: IOPAMIDOL-370 (76%);100ML BOTTLE 75 ML IV (16:32)
[2023-08-08] MEDS: SODIUM CHLORIDE 0.9% 10ML SYR (RAD ONLY) 10 ML IV (16:32)
[2023-08-08 17:57] VITALS: BP 110/58; PULSE 94; RESP 13; TEMP 36.9
== END 2023-08-08 17:57 | disposition home or self-care (01) ==
PROVIDERS: Emergency Provider Emergency Medicine; PCP Physician Assistant
DX: K52.9 Noninfective gastroenteritis and colitis, unspecified (principal); R11.2 Nausea with vomiting, unspecified; K21.9 Gastro-esophageal reflux disease without esophagitis
CPT/HCPCS: 74177; 80053; 81001; 83690; 84702; 84703; 85007; 85025; 87507; 96361; 96374; 99285; J2405; J7120; Q9967

== ENCOUNTER 2024-07-20 10:33 | Emergency (ER) | payer BC, SELFPAY ==
[2024-07-20 10:42] VITALS: BP 109/75; PULSE 58; O2SAT 98
[2024-07-20 10:47] VITALS: BP 109/75; PULSE 66; RESP 18; TEMP 36.4; O2SAT 100; BMI 25.4
[2024-07-20] MEDS: IPRATROPIUM/ALBUTEROL 3 ML NEB IH (11:03)
[2024-07-20 11:12] LABS: Basophils # 0.1 K/mm3 (0-0.2); Basophils % 0.5 % (0.1-2.0); Eosinophils # 0.1 Kmm3 (0.0-0.4); Eosinophils % 0.6 % (0.1-12.0); Hematocrit 43.8 % (37.0-47.0); Hemoglobin 15.2 g/dL (12.2-16.2); Lymphocytes # 1.5 K/mm3 (0.7-4.5); Lymphocytes % 11.3 % (10-50); Mean Corpuscular HGB Conc 34.7 g/dL (31.8-35.4); Mean Corpuscular Hemoglobin 29.1 pg (27.0-31.2); Mean Corpuscular Volume 83.7 fl (81-99); Mean Platelet Volume 9.4 fl (7.4-10.4); Monocytes # 0.4 K/mm3 (0.1-1.0); Monocytes % 3.3 % (1.7-9.3); Neutrophils # 10.8 K/mm3 (1.8-7.8); Neutrophils % 83.9 % (37.0-80.0); Nucleated Red Blood Cells # 0 10^3/uL; Nucleated Red Blood Cells % 0 %; Platelet Count 380 K/mm3 (142-424); Red Blood Count 5.23 M/mm3 (4.20-5.40); Red Cell Distribution Width 12.3 % (11.5-17.5); Red Cell Distribution Width-SD 37.4 fL; White Blood Count 12.9 K/mm3 (4.8-10.8)
[2024-07-20] MEDS: LACTATED RINGERS 1000ML 1,000 ML 999 ML IV (11:13)
[2024-07-20] MEDS: ONDANSETRON 4MG/2ML VIAL 4 MG IV (11:13)
--- NOTE | 2024-07-20 11:18 | HMH.EDGENADL ---
Discharge Plan Disposition Patient Disposition: Home, Self-Care Prescriptions Prescriptions: New promethazine 12.5 mg suppository 12.5 mg MO TID PRN (Reason: nausea and vomiting) Qty: 12 0RF Rx Instructions: do not give 3rd daily dose after evening meal or within 4hr before bed promethazine 25 mg tablet 25 mg PO TID PRN (Reason: nausea and vomiting) 5 Days Qty: 20 0RF ondansetron 4 mg tablet,disintegrating 4 mg PO Q6H PRN (Reason: nausea and vomiting) 5 Days Qty: 20 0RF No Action azithromycin [Zithromax Z-Drew] 250 mg tablet See Rx Instructions PO .COMPLEX Qty: 6 0RF Rx Instructions: For 250 mg dose pack: take 500 mg today (day 1), then 250 mg for 4 days (days 2-5) PO methylprednisolone 4 mg tablets,dose pack See Rx Instructions PO PER PKG DIR Qty: 21 0RF Rx Instructions: PO PER PKG DIR [id number] [Bromfed DM] 2-30-10 mg/5 mL syrup 5 ml PO Q4-6H PRN (Reason: cold symptoms) Qty: 118 0RF albuterol sulfate 90 mcg/actuation HFA aerosol inhaler See Rx Instructions .ROUTE .COMPLEX Qty: 36 2RF Dose Instruction: INHALE 2 PUFFS BY MOUTH EVERY 4 TO 6 HOURS NEEDED FOR SHORTNESS OF BREATH OR WHEEZING Rx Instructions: INHALE 2 PUFFS BY MOUTH EVERY 4 TO 6 HOURS NEEDED FOR SHORTNESS OF BREATH OR WHEEZING Referrals Follow up/Referrals: Erika Ordaz PA [Primary Care Provider] - See instructions Activity Restrictions/Add. Instructions Additional Instructions/Restrictions: As discussed your symptoms are most likely secondary to chronic cannabinoid use and the diagnosis is cannabinol hyperemesis syndrome. The best treatment is long-term abstinence from cannabinol use. In the meantime you may use silp-iet-yghaeny capsaicin cream as discussed I have also prescribed multiple medications for your nausea including Zofran which you may take if you do not need to be drowsy if you are needing to get some sleep you may take Phenergan which I prescribed as well do not take both at the same time. If you are continuing to throw up and not tolerating anything by mouth you were prescribed Phenergan suppositories which can be used as a rescue medication if you are unable to keep anything down and continue throat please return to the emergency department. Clinical Impressions Clinical Impression: Cannabinoid hyperemesis syndrome, Nausea vomiting and diarrhea Instructions Patient Instructions: DI for Acute Abdominal Pain Print Language Print Language: Luxem[place] Discharge ED Provider: Khadijah Gan General Adult HPI General Chief complaint: Abdominal Pain Stated complaint: dizziness feels like she can pass out nauea Time Seen by Provider: 07/20/24 11:09 Mode of Arrival: Ambulatory Source of Information: Patient Description of Symptoms (Recalled from ER Triage Doc. by RN): pt reports waking up this AM with N/V/D. pt c/o dizziness with standing, lightheadedness, epigasteric pain that is 10/10/cramping in nature, feels like a knot, chilling and sweating. pt also reports congestion since yesterday. Pt reports recently returning from [place]. pt LMP 07/19. History of Present Illness HPI narrative: Patient is a 24-year-old female presented with nausea vomiting abdominal discomfort and some diarrhea. This has happened numerous times in the past she has a history of chronically smoking marijuana states that she gets better with hot showers and hot baths. Has never been diagnosed with cannabinol hyperemesis in the past. Did recently get back from her honeymoon which was a cruise but that was 2 weeks ago she was drinking at that time but has not been drinking since then. No sick contacts that she is aware of. No fevers or chills. Related Data Previous Rx's ?Medication ?Instructions ?Recorded azithromycin 250 mg tablet See Rx Instructions PO .COMPLEX #6 05/25/24 (Zithromax Z-Drew) tabs unfngvpfmkcdeke-[id number]-LT 5 ml PO Q4-6H PRN cold symptoms 05/25/24 2 mg-30 mg-10 mg/5 mL oral syrup #118 mL (Bromfed DM) methylprednisolone 4 mg tablets in See Rx Instructions PO PER PKG DIR 05/25/24 a dose pack #21 tabs albuterol sulfate 90 mcg/actuation See Rx Instructions .Route 06/24/24 aerosol inhaler .COMPLEX #36 grams ondansetron 4 mg disintegrating 4 mg PO Q6H PRN nausea and 07/20/24 tablet vomiting 5 days #20 tabs promethazine 12.5 mg rectal 12.5 mg MO TID PRN nausea and 07/20/24 suppository vomiting #12 ea promethazine 25 mg tablet 25 mg PO TID PRN nausea and 07/20/24 vomiting 5 days #20 tabs Allergies Allergy/AdvReac Type Severity Reaction Status Date / Time amoxicillin (AMOXICILLIN) Allergy Mild Verified 05/25/24 11:32 penicillin G (PENICILLIN G) Allergy Mild Verified 05/25/24 11:32 egg Allergy Verified 05/25/24 11:32 [facility] Disclaimer: The information contained in this section may have been updated after the patient was seen, as this information can be updated by other users. Medical History GERD (gastroesophageal reflux disease) Asthma Surgical History History of esophagogastroduodenoscopy (EGD) [place] teeth extracted Family History Other Family history of cancer Social History Smoking Status: Current every day smoker tobacco type: e-cigarettes alcohol intake: never substance use type: denies use current occupational status: employed and other Travel in the last 8 weeks?: [place] the [place] household members: family housing: house Have you lived/traveled outside US in past 30 days?: Yes Contact w/someone who lives/traveled outside US past 30 days?: Yes Exposure to someone with infectious disease in past 14 days?: No Do you have a fever (greater than 100.4 F or 38 C)?: No Have you tested positive for COVID-19?: No Exposed to someone with COVID-19 in past 14 days?: No Do you have a sore throat?: No Do you have a cough?: No Do you have any weakness?: No Do you have any diarrhea?: No Are you experiencing any unusual bleeding?: No Do you have any muscle aches/pain?: No Do you have any abdominal pain?: No Are you experiencing loss of taste or smell?: No Other Medical History Have you received the Flu Vaccine for this season: No Have you received the Pneumonia Vaccine: No ROS Obtained: Yes All systems reviewed & no additional complaints except as documented Physical Exam General General appearance: other (Actively retching diaphoretic) Respiratory Respiratory exam: Present normal lung sounds bilaterally; Absent respiratory distress Cardiovascular Cardiovascular exam: Present regular rate and normal rhythm Abdominal Exam Abdominal exam: Present soft and tenderness (Does have some diffuse tenderness to deep palpation); Absent distention Neurological Exam Neurological exam: Present alert and oriented X3 Medical Decision Making Medical Records Screening: Per USPSTF and CDC recommendations, given the prevalence of disease in our region, it is our hospital?s policy to screen for HIV and viral Hepatitis for all patients aged 18 and over and those with ongoing risk factors. Leonardo Inquiry Pt receiving controlled substance: No Vital Signs: 07/20/24 10:42 07/20/24 10:47 07/20/24 11:30 Temperature 97.5 F L Temperature Source Oral Pulse Rate 58 L 72 Pulse Rate [Left] 66 Respiratory Rate 18 Blood Pressure 109/75 L 97/72 L Blood Pressure [Right Arm] 109/75 L Blood Pressure Mean 83 Blood Pressure Mean [Right Arm] 86 Blood Pressure Source [Right Arm] Automatic Cuff Blood Pressure Position [Right Arm] Sitting 02 Sat by Pulse Oximetry 98 100 96 Oxygen Delivery Method Room Air Lab Data Lab results reviewed: Yes I reviewed the patient's lab results. Lab Results 07/20/24 11:00: WBC 12.9 H, RBC 5.23, Hgb 15.2, Hct 43.8, MCV 83.7, MCH 29.1, MCHC 34.7, RDW 12.3, Plt Count 380, MPV 9.4, Neut % (Auto) 83.9 H, Lymph % (Auto) 11.3, [place] % (Auto) 3.3, Eos % (Auto) 0.6, Baso % (Auto) 0.5, Neut # (Auto) 10.8 H, Lymph # (Auto) 1.5, [place] # (Auto) 0.4, Eos # (Auto) 0.1, Baso # (Auto) 0.1, Sodium 139, Potassium 3.9, Chloride 107, Carbon Dioxide 20 L, Anion Gap 15.9 H, BUN 9, Creatinine 0.70, Estimated Creat Clear 114, Estimated GFR 102, Est GFR ( Amer) 123, Glucose 106 H, Calcium 10.3 H, Total Bilirubin 0.6, AST 31, ALT 22, Alkaline Phosphatase 87, Total Protein 8.1, Albumin 5.4 H, Globulin 2.7, Albumin/Globulin Ratio 2.0 H, Serum HCG, Qual Negative 07/20/24 11:00 07/20/24 11:00 Orders (Tests/Meds): ED MEDICATIONS Generic Name Dose Route Start Last Admin Trade Name Freq PRN Reason Stop Dose Admin Lactated Ringer's 1,000 mls @ 999 mls/hr 07/20/24 11:12 07/20/24 11:13 Lactated Ringer's 1000 Ml Bag IV 07/20/24 12:12 999 mls/hr .Q1H1M ONE Administration Discontinued Medications Generic Name Dose Route Start Last Admin Trade Name Freq PRN Reason Stop Dose Admin Acetaminophen 1,000 mg 07/20/24 11:16 07/20/24 11:31 Acetaminophen 1,000mg/100ml Vial IV 07/20/24 11:17 1,000 mg ONCE ONE Administration Albuterol/Ipratropium 3 ml 07/20/24 11:02 07/20/24 11:03 Ipratropium/Albuterol 3 Ml Neb IH 07/20/24 11:03 3 ml ONCE ONE Administration Ondansetron HCl 4 mg 07/20/24 11:12 07/20/24 11:13 Ondansetron 4mg/2ml Vial IV 07/20/24 11:13 4 mg ONCE ONE Administration ORDERS Category Date Time Status Complete Blood Count Auto Diff Stat Lab 07/20/24 11:00 Completed Comprehensive Metabolic Panel Stat Lab 07/20/24 11:00 Completed HCG Qualitative, Serum Stat Lab 07/20/24 11:00 Completed HIV Combo Stat Lab 07/20/24 11:00 Received Hepatitis C Ab Qual. W/ RFX Stat Lab 07/20/24 11:00 Received Lipase Stat Lab 07/20/24 11:00 Received Urinalysis and Microscopic Stat Lab 07/20/24 10:52 Ordered Medical Decision Narrative: Patient with above history and physical with cyclical vomiting presents today with nausea vomit diarrhea possibly has a viral syndrome superimposed upon what appears to be cannabinoid hyperemesis given her chronic marijuana use improvement with hot showers or hot baths and recurrence of her symptoms. Will administer IV fluids Tylenol Zofran and reassess in addition to getting basic labs. Reassessment 12:03 PM patient feeling much better serial exams benign. Patient's given multiple prescriptions for nausea medication instructed on how to use them. Return precautions were emphasized. Patient was discharged in stable and improved condition. Labs unremarkable from an emergency standpoint and reviewed. Critical Care Critical Care Time Critical Care Time: No
[2024-07-20 11:29] LABS: HCG Qualitative, Serum Negative (Negative)
[2024-07-20 11:30] VITALS: BP 97/72; PULSE 72; O2SAT 96
[2024-07-20] MEDS: ACETAMINOPHEN 1,000MG/100ML VIAL 1000 MG IV (11:31)
[2024-07-20 11:32] LABS: Albumin Level 5.4 g/dl (3.5-5.0); Chloride 107 mmol/L (98-107); Potassium 3.9 mmoL/L (3.5-5.1); Sodium 139 mmol/L (136-145)
[2024-07-20 11:35] LABS: Alanine Aminotransferase 22 U/L (12-78); Alkaline Phosphatase 87 U/L (38-126); Anion Gap 15.9 mEq/L (5-15); Aspartate Amino Transferase 31 U/L (14-36); Bilirubin,Total 0.6 mg/dl (0.2-1.3); Blood Urea Nitrogen 9 mg/dl (7-17); Calcium 10.3 mg/dl (8.4-10.2); Carbon Dioxide 20 mmol/L (22.0-30.0); Creatinine Clearance Estimated 114 mL/min (50-200); Estimated Glomerular Filt Rate 102 ml/min (>60); GFR (African American) 123 ML/MIN (>60); Globulin 2.7 g/dL (1.3-3.2); Glucose 106 mg/dl (74-100); Total Protein,Serum 8.1 g/dl (6.3-8.2)
[2024-07-20 12:16] VITALS: BP 97/52; PULSE 72; RESP 18; TEMP 36.4; O2SAT 96
[2024-07-20 12:40] LABS: Lipase 89 U/L (23-300)
[2024-07-20 12:56] LABS: Hepatitis C Ab Qual. W/ RFX NEGATIVE (Negative)
[2024-07-20 19:14] LABS: HIV Combo NEGATIVE (Negative)
== END 2024-07-20 12:15 | disposition home or self-care (01) ==
PROVIDERS: Emergency Provider Student in an Organized Health Care Education/Training Program; PCP Physician Assistant
DX: R10.13 Epigastric pain (principal); R11.15 Cyclical vomiting syndrome unrelated to migraine; F12.988 Cannabis use, unspecified with other cannabis-induced disorder; R42 Dizziness and giddiness; Z11.59 Encounter for screening for other viral diseases; Z11.4 Encounter for screening for human immunodeficiency virus [HIV]
CPT/HCPCS: 80053; 83690; 84703; 85025; 86803; 87389; 96361; 96374; 96375; 99284; J0131; J2405; J7120

== ENCOUNTER 2025-01-24 15:14 | Outpatient (CLI) | payer BC, SELFPAY | END 2025-01-24 23:59 | disposition home or self-care (01) | LOC: LAB 15:16 | PROVIDERS: Visit Provider Obstetrics & Gynecology | DX: Z34.90 Encounter for supervision of normal pregnancy, unspecified, unspecified trimester (principal); N92.6 Irregular menstruation, unspecified | CPT/HCPCS: 36415; 84144; 84702 ==

== ENCOUNTER 2025-02-07 18:19 | Emergency (ER) | payer BC, SELFPAY ==
[2025-02-07 18:38] VITALS: BP 114/76; PULSE 91; RESP 16; TEMP 36.9; O2SAT 100; BMI 23.6
--- OUTSIDE RECORDS SUMMARY | 2025-02-07 18:41 | XMS_ITS ---
Author Organization Unknown ENCOUNTERS Encounter Performer Location Date Diagnosis Diagnosis Status Emergency [facility] [address] [facility] [address] [place] [address] [id number] Pre Admit [facility] [address] [facility] [address] [place] [address] [phone] Pre Admit [facility] [address] [facility] [address] [place] [address] [id number] Emergency [place] [id number] [facility] [address] [place] [address] [id number] JORGE Emergency [facility] [address] [facility] [address] [place] [address] [phone] JORGE Pre Admit [facility] [address] [facility] [address] [place] [address] [id number] Emergency [facility] [address] [facility] [address] [place] [address] [id number] JORGE Emergency [facility] [address] [place] [address] [phone] JORGE Emergency [facility] [address] [facility] [address] [place] [address] [id number] JORGE Emergency Ritesh Herman [facility] [address] [facility] [address] [place] [address] [id number] JORGE Emergency Veronica Dougherty [facility] [address] [facility] [address] [place] [address] [phone] JORGE *Note: Encounters from your own facility or health system may be excluded. Allergies, Adverse Reactions, Alerts Allergen Type Severity Identification Date EGGS propensity to adverse reactions 0 [id number] egg drug allergy 0 [id number] amoxicillin drug allergy 2 [id number] penicillin G drug allergy 2 [id number] Medications Name Date Quantity Days Supplied [facility] Number
--- NOTE | 2025-02-07 18:44 | US_ITS ---
PROCEDURE INFORMATION: Exam: US , Transvaginal Exam date and time: 02/07/2025 7:58 PM Age: 25 years old Clinical indication: Lmp or gestational age (in weeks): 7w; Other: Nausea and vomiting; ; Additional info: Vomiting/abd pain TECHNIQUE: Imaging protocol: Real-time transvaginal obstetrical ultrasound of the maternal pelvis with image documentation. Transvaginal imaging was used for better evaluation of the fetus, adnexa, and/or cervix. COMPARISON: US TRANSVAGINAL 06/18/2021 3:34 PM FINDINGS: Gestation: Single intrauterine . Yolk sac 5.1 mm heart rate: Heart rate 143 bpm Placenta: Small subchorionic hemorrhage measures 11 x 4 mm. BIOMETRY: [place] rump length (CRL): [place]-rump length corresponds to 7 weeks 2 days MATERNAL: Right ovary/adnexa: Right ovary 3.4 x 3 x 2.1 cm Left ovary/adnexa: Left ovary 2.3 x 2.5 x 1.5 cm . Left ovarian cyst measures 2 x 1.25 x 1.6 cm and may represent corpus luteal cyst IMPRESSION: Viable 1st trimester Small subchorionic hemorrhage measures 11 x 4 mm.
--- NOTE | 2025-02-07 18:45 | ED_ITS ---
<Statement entered by Mookie Goff MD - 02/08/25 01:27> I was consulted by the BRENDAN, and we discussed the complexity of the problems being addressed. I approve the treatment and management plan for this patient's care in the emergency department, thus performing a substantive portion of the medical decision making. Mookie Goff MD Discharge Plan Disposition Chief Complaint: Nausea/Vomiting/Diarrhea Prescriptions Prescriptions: New cephalexin 500 mg capsule 500 mg PO BID 7 Days Qty: 14 0RF No Action budesonide 90 mcg/actuation aerosol powdr breath activated 1 inh inhalation BID Qty: 1 2RF albuterol sulfate 90 mcg/actuation HFA aerosol inhaler See Rx Instructions .ROUTE .COMPLEX Qty: 36 2RF Dose Instruction: INHALE 2 PUFFS BY MOUTH EVERY 4 TO 6 HOURS NEEDED FOR SHORTNESS OF BREATH OR WHEEZING Rx Instructions: INHALE 2 PUFFS BY MOUTH EVERY 4 TO 6 HOURS NEEDED FOR SHORTNESS OF BREATH OR WHEEZING ondansetron 4 mg tablet,disintegrating 4 mg PO Q6H PRN (Reason: nausea and vomiting) 5 Days Qty: 20 0RF Referrals Follow up/Referrals: Alvina Kennedy DO [Staff Physician, [facility]] - See instructions Yariel Rothman DO [Primary Care Provider, Family Practice] - See instructions Clinical Impressions Clinical Impression: , first, Urinary tract infection affecting Instructions Patient Instructions: Urinary Tract Infection, DI for Urinary Tract Infection (UTI) Print Language Print Language: Slovenian Discharge ED Provider: Mookie Goff General Adult HPI General Chief complaint: Nausea/Vomiting/Diarrhea Stated complaint: Positive Test, nauseous, dizzy, sweating Time Seen by Provider: 02/07/25 18:38 Mode of Arrival: Ambulatory Source of Information: Patient Description of Symptoms (Recalled from ER Triage Doc. by RN): Patient presents with complaints of nausea and vomiting. Unsur date of LMP, reports prior to 01/14. Patient has been given Phenergan for the nausea but not taking it due to work. Patient denies any cramping or bleeding. Has an appt with Brent February 20. History of Present Illness HPI narrative: 25-year-old female presents with complaints of nausea and vomiting over the past week and a half. She is unable to tolerate p.o. at this time. She believes that she might be about 8 weeks . She does not see OB until March 02. She has been given Phenergan but she cannot take it because it is too sedating. She says she has abdominal pain with her vomiting. She is going to use Dr. Kennedy. She does not have any vaginal bleeding. States that she just cannot tolerate smells at this time. No fevers or chills. No other symptoms at this time Related Data Previous Rx's ?Medication ?Instructions ?Recorded ondansetron 4 mg disintegrating 4 mg PO Q6H PRN nausea and 07/20/24 tablet vomiting 5 days #20 tabs albuterol sulfate 90 mcg/actuation See Rx Instructions .Route 02/01/25 aerosol inhaler .COMPLEX #36 grams budesonide 90 mcg/actuation breath 1 inh inhalation BI D #1 ea 02/01/25 activated powder inhaler cephalexin 500 mg capsule 500 mg PO BID 7 days #14 cap s 02/07/25 Allergies Allergy/AdvReac Type Severity Reaction Status Date / Time amoxicillin (AMOXICILLIN) Allergy Mild Other Verified 02/01/25 09:04 penicillin G (PENICILLIN G) Allergy Mild Other Verified 02/01/25 09:04 egg Allergy Other Verified 02/01/25 09:04 [facility] Disclaimer: The information contained in this section may have been updated after the patient was seen, as this information can be updated by other users. Medical History GERD (gastroesophageal reflux disease) Asthma Surgical History History of esophagogastroduodenoscopy (EGD) [place] teeth extracted Family History Other Family history of cancer Social History Smoking Status: Former smoker tobacco type: e-cigarettes alcohol intake: never substance use type: denies use current occupational status: employed and other Travel in the last 8 weeks?: Inside the [place] household members: family housing: house Have you lived/traveled outside US in past 30 days?: No Contact w/someone who lives/traveled outside US past 30 days?: No Exposure to someone with infectious disease in past 14 days?: No Do you have a fever (greater than 100.4 F or 38 C)?: No Have you tested positive for COVID-19?: No Exposed to someone with COVID-19 in past 14 days?: No Do you have a sore throat?: No Do you have a cough?: No Do you have any weakness?: No Do you have any diarrhea?: No Are you experiencing any unusual bleeding?: No Do you have any muscle aches/pain?: No Do you have any abdominal pain?: No Are you experiencing loss of taste or smell?: No Other Medical History Have you received the Flu Vaccine for this season: No Have you received the Pneumonia Vaccine: No ROS Obtained: Yes Systems reviewed as appropriate & no additional complaints except as documented Constitutional Constitutional: Reports as per HPI Physical Exam General General appearance: alert and in no apparent distress Head Head exam: normocephalic Eye Eye exam: Present PERRL and EOMI ENT ENT exam: Present normal oropharynx and mucous membranes moist Neck Neck exam: Present full ROM and trachea midline Respiratory Respiratory exam: Present normal lung sounds bilaterally Cardiovascular Cardiovascular exam: Present regular rate, normal rhythm, normal heart sounds, +S1 and +S2 Abdominal Exam Abdominal exam: Present soft and normal bowel sounds Extremities Exam Extremities exam: Present full ROM and normal capillary refill Neurological Exam Neurological exam: Present alert and oriented X3 Skin Skin exam: Present warm and dry Medical Decision Making Medical Records Screening: Per USPSTF and CDC recommendations, given the prevalence of disease in our region, it is our hospital?s policy to screen for HIV and viral Hepatitis for all patients aged 18 and over and those with ongoing risk factors. Leonardo Inquiry Pt receiving controlled substance: No Leonardo was queried for this patient: No Vital Signs: 02/07/25 18:38 02/07/25 19:30 02/07/25 20:00 Temperature 98.4 F Temperature Source Oral Pulse Rate 83 80 Pulse Rate [Right Radial] 91 H Respiratory Rate 16 Blood Pressure 110/64 105/59 L Blood Pressure [Right Radial Artery] 114/76 Blood Pressure Mean 79 74 Blood Pressure Mean [Right Radial Artery] 88 Blood Pressure Source [Right Radial Artery] Automatic Cuff Blood Pressure Position [Right Radial Artery] Supine 02 Sat by Pulse Oximetry 100 100 100 Oxygen Delivery Method Room Air Lab Data Lab Results 02/07/25 18:51: Urine Color Yellow, Urine Appearance Sl cloudy, Urine pH 6.0, Ur Specific [place] 1.025, Urine Protein Negative, Urine Glucose (UA) Negative, Urine Ketones 2+, Urine Blood Negative, Urine Nitrate Negative, Urine Bilirubin Negative, Urine Urobilinogen 0.2, Ur Leukocyte Esterase Negative, Urine RBC 5- 10, Urine WBC 10-20, Ur Squamous Epith Cells 20-50, Urine Bacteria 3+, Urine Mucus 2+ 02/07/25 18:58: WBC 14.5 H, RBC 4.93, Hgb 14.2, Hct 40.7, MCV 82.6, MCH 28.8, MCHC 34.9, RDW 12.4, Plt Count 364, MPV 9.1, Neut % (Auto) 68.0, Lymph % (Auto) 24.0, Hale % (Auto) 6.4, Eos % (Auto) 0.6, Baso % (Auto) 0.6, Neut # (Auto) 9.8 H, Lymph # (Auto) 3.5, Hale # (Auto) 0.9, Eos # (Auto) 0.1, Baso # (Auto) 0.1, Sodium 138, Potassium 3.6, Chloride 97 L, Carbon Dioxide 24, Anion Gap 20.6 H, B UN 5 L, Creatinine 0.50 L, Estimated Creat Clear 153, Estimated GFR 149, Est GFR ( Amer) 180, Glucose 87, Calcium 10.3 H, Magnesium 1.8, Total Bilirubin 0.5, AST 29, ALT 22, Alkaline Phosphatase 52, Total Protein 8.4 H, Albumin 5.1 H , Globulin 3.3 H, Albumin/Globulin Ratio 1.5, Lipase 462 H, HCG, Quant [id number] H 02/07/25 18:58 02/07/25 18:58 Orders (Tests/Meds): ED MEDICATIONS Discontinued Medications Generic Name Dose Route Start Last Admin Trade Name Freq PRN Reason Stop Dose Admin Diphenhydramine HCl 25 mg 02/07/25 18:40 02/07/25 19:01 Diphenhydramine 50mg/Ml Vial IV 02/07/25 18:41 25 mg ONCE ONE Administration Sodium Chloride 1,000 mls @ 999 mls/hr 02/07/25 18:40 02/07/25 19:00 Sod Chlor 0.9% 1000ml Bag IV 02/07/25 19:40 999 mls/hr .Q1H1M ONE Administration Ondansetron HCl 4 mg 02/07/25 18:40 02/07/25 19:01 Ondansetron 4mg/2ml Vial IV 02/07/25 18:41 4 mg ONCE ONE Administration ORDERS Category Date Time Status Beta HCG, Quant [HCG,Quantitative] Stat Lab 02/07/25 18:58 Completed CBC [Complete Blood Count Auto Diff] Stat Lab 02/07/25 18:58 Completed Comprehensive Metabolic Panel Stat Lab 02/07/25 18:58 Completed Lipase Stat Lab 02/07/25 18:58 Completed Magnesium Stat Lab 02/07/25 18:58 Completed Urinalysis and Microscopic Stat Lab 02/07/25 18:51 Completed Urine Culture Stat Micro 02/07/25 18:51 Received US OB transvaginal Stat Ultrasound 02/07/25 18:44 Completed Medical Decision Narrative: patient is a 25-year-old female presents to the ED today for complaint of nausea, vomiting over the past week and a half. She has no bleeding but has abdominal pain when she vomits. Presenting to the emergency department for evaluation of vomiting. Patient is hemodynamically stable and nontoxic- appearing upon arrival, afebrile. Differential diagnosis includes vomiting, hyperemesis gravidarum. Workup will be conducted with hematologic labs, specific imaging. Initial inventions include crystalloid bolus. Patient'sWhite count was elevated at 14.5 I believe this is due to and vomiting for a week and a half. H&H is normal. Patient's electrolytes were okay her BUN and creatinine were 5 and 0.50. She did receive a bag of fluids here in the ED. Patient's lipase was slightly elevated at 462. Dr. Goff and I discussed this and believe she needs to drink more fluids over the next few days. I also believe that she needs at this repeated. Her urine did show some ketones as well as 3+ bacteria which we will treat with Keflex on discharge. Patient does feel improved after fluids and Benadryl with Zofran. We are waiting on the ultrasound to result at this time. Her hCG quant was [id number]. Patient's ultrasound still is not back. 2128 ultrasound is back patient is 7 weeks 2 days with a small subchorionic hemorrhage. Patient will be discharged with return precautions. Patient will follow-up with Dr. Kennedy Critical Care Critical Care Time Critical Care Time: No
[2025-02-07 18:55] LABS: Microscopic, Urine URINE MICROSCOPIC (MICROSCOPIC)
[2025-02-07 18:56] LABS: Bilirubin,Urine Negative (Negative); Color,Urine YELLOW (Yellow); Glucose,Urine (UA) Negative (Negative); Ketones,Urine 2+ (Negative); Leukocyte Esterase,Urine Negative (Negative); PH,Urine 6.0 (5.0-8.5); Protein,Urine Negative (Negative); Specific Gravity, Urine 1.025 (1.005-1.030); Urobilinogen,Urine 0.2 EU/dl (0.2)
[2025-02-07] MEDS: 0.9 % SODIUM CHLORIDE 1000ML 1,000 ML 999 ML IV (19:00)
[2025-02-07] MEDS: ONDANSETRON 4MG/2ML VIAL 4 MG IV (19:01)
[2025-02-07 19:07] LABS: Hematocrit 40.7 % (37.0-47.0); Hemoglobin 14.2 g/dL (12.2-16.2); Immature Granulocytes % 0.4 %; Mean Corpuscular HGB Conc 34.9 g/dL (31.8-35.4); Mean Corpuscular Hemoglobin 28.8 pg (27.0-31.2); Mean Corpuscular Volume 82.6 fl (81-99); Nucleated Red Blood Cells % 0 %; Platelet Count 364 K/mm3 (142-424); Red Blood Count 4.93 M/mm3 (4.20-5.40); Red Cell Distribution Width-SD 37.2 fL; White Blood Count 14.5 K/mm3 (4.8-10.8)
[2025-02-07 19:24] LABS: Bacteria,Urine 3+ /lpf; Mucus,Urine 2+ /lpf; Squamous Epithelial Cell,Urine 20-50 #/hpf (0-5)
[2025-02-07 19:26] LABS: Albumin Level 5.1 g/dl (3.5-5.0); Chloride 97 mmol/L (98-107)
[2025-02-07 19:27] LABS: Potassium 3.6 mmoL/L (3.5-5.1); Sodium 138 mmol/L (136-145)
[2025-02-07 19:29] LABS: Alanine Aminotransferase 22 U/L (12-78); Anion Gap 20.6 mEq/L (5-15); Aspartate Amino Transferase 29 U/L (14-36); Bilirubin,Total 0.5 mg/dl (0.2-1.3); Blood Urea Nitrogen 5 mg/dl (7-17); Carbon Dioxide 24 mmol/L (22.0-30.0); Creatinine Clearance Estimated 153 mL/min (50-200); Creatinine,Serum 0.50 mg/dl (0.52-1.04); Estimated Glomerular Filt Rate 149 ml/min (>60); GFR (African American) 180 ML/MIN (>60)
[2025-02-07 19:30] VITALS: BP 110/64; PULSE 83; O2SAT 100
[2025-02-07 19:30] LABS: Albumin/Globulin Ratio 1.5 (1.1-1.8); Alkaline Phosphatase 52 U/L (38-126); Calcium 10.3 mg/dl (8.4-10.2); Globulin 3.3 g/dL (1.3-3.2); Glucose 87 mg/dl (74-100); Lipase 462 U/L (23-300); Magnesium 1.8 mg/dl (1.6-2.3); Total Protein,Serum 8.4 g/dl (6.3-8.2)
[2025-02-07 20:00] VITALS: BP 105/59; PULSE 80; O2SAT 100
[2025-02-07 21:35] VITALS: BP 105/59; PULSE 78; RESP 18; TEMP 36.6; O2SAT 100
--- NOTE | 2025-02-07 21:37 | PC.NURSE ---
IV discontinued. Catheter tip intact. Bleeding controlled.
[2025-02-07 21:42] VITALS: BP 120/69; PULSE 87; RESP 16; TEMP 36.8
--- NOTE | 2025-02-11 08:25 | PC.NURSE ---
Preliminary urine culture results reviewed by Dr. Goff, no change in treatment plan at this time.
== END 2025-02-07 21:43 | disposition home or self-care (01) ==
PROVIDERS: Nurse Practitioner; Emergency Provider Student in an Organized Health Care Education/Training Program; PCP Student in an Organized Health Care Education/Training Program
DX: O21.9 Vomiting of pregnancy, unspecified (principal); O23.41 Unspecified infection of urinary tract in pregnancy, first trimester; N39.0 Urinary tract infection, site not specified; Z3A.01 Less than 8 weeks gestation of pregnancy; O99.511 Diseases of the respiratory system complicating pregnancy, first trimester; J45.909 Unspecified asthma, uncomplicated; O20.8 Other hemorrhage in early pregnancy; Z87.891 Personal history of nicotine dependence
CPT/HCPCS: 76817; 80053; 81001; 83690; 83735; 84702; 85025; 87086; 87088; 96361; 96374; 96375; 99285; J1200; J2405; J7030

== ENCOUNTER 2025-03-02 15:56 | Outpatient (CLI) | payer BC, SELFPAY ==
[2025-03-02 16:33] LABS: Hematocrit 34.4 % (37.0-47.0); Hemoglobin 11.9 g/dL (12.2-16.2); Immature Granulocytes % 0.3 %; Mean Corpuscular HGB Conc 34.6 g/dL (31.8-35.4); Mean Corpuscular Hemoglobin 28.5 pg (27.0-31.2); Mean Corpuscular Volume 82.5 fl (81-99); Nucleated Red Blood Cells % 0 %; Platelet Count 309 K/mm3 (142-424); Red Blood Count 4.17 M/mm3 (4.20-5.40); Red Cell Distribution Width-SD 37.9 fL; White Blood Count 11.2 K/mm3 (4.8-10.8)
[2025-03-02 18:04] LABS: Hepatitis C Ab Qual. W/ RFX NEGATIVE (Negative)
[2025-03-04 08:36] LABS: RPR W/RFX Titers Nonreactive (Nonreactive)
[2025-03-04 09:29] LABS: Hepatitis B Surface Antigen Negative (Negative)
[2025-03-04 10:30] LABS: Rubella Antibodies, IgG 3.67 index (Immune >0.99)
== END 2025-03-02 23:59 | disposition home or self-care (01) ==
LOC: LAB 15:57
PROVIDERS: Visit Provider Obstetrics & Gynecology
DX: O23.40 Unspecified infection of urinary tract in pregnancy, unspecified trimester (principal); O21.9 Vomiting of pregnancy, unspecified; O26.899 Other specified pregnancy related conditions, unspecified trimester; R19.7 Diarrhea, unspecified; Z3A.00 Weeks of gestation of pregnancy not specified
CPT/HCPCS: 36415; 85025; 86592; 86762; 86787; 86803; 86850; 87340; 87389